=== PATIENT | female | born 1945 ===

== ENCOUNTER 2020-11-13 10:51 | Outpatient (REF) | payer MEDICARE, SELFPAY ==
--- NOTE | ~2020-11-13 | XR_ITS ---
EXAMINATION: KNEE X-RAY CLINICAL INFORMATION: Right knee pain COMPARISON: Previous right knee x-ray June 2016 and left knee x-ray April 2016 TECHNIQUE: Standing AP view of both knees and lateral and sunrise view of the right knee FINDINGS: Right: Bone alignment is normal. No fracture or dislocation is seen. There is tricompartment arthritis. There is a small osteophyte at the quadriceps tendon insertion to the patella. There is no joint effusion. AP view of the left knee demonstrates arthritis at the femoral tibial joints. XR/XR knee standing BI IMPRESSION: Bilateral arthritis increased from 2016 exams.
--- NOTE | ~2020-11-13 | XR_ITS ---
EXAMINATION: KNEE X-RAY CLINICAL INFORMATION: Right knee pain COMPARISON: Previous right knee x-ray June 2016 and left knee x-ray April 2016 TECHNIQUE: Standing AP view of both knees and lateral and sunrise view of the right knee FINDINGS: Right: Bone alignment is normal. No fracture or dislocation is seen. There is tricompartment arthritis. There is a small osteophyte at the quadriceps tendon insertion to the patella. There is no joint effusion. AP view of the left knee demonstrates arthritis at the femoral tibial joints. XR/XR knee RT 2V IMPRESSION: Bilateral arthritis increased from 2016 exams.
== END 2020-11-13 10:52 | disposition home or self-care (01) ==
LOC: HO.HOSX 10:51
PROVIDERS: Visit Provider Orthopaedic Surgery
DX: Z13.89 Encounter for screening for other disorder (principal)

== ENCOUNTER → 2020-11-15 10:32 | Outpatient (BNVA) | payer MEDICARE, SELFPAY | PROVIDERS: PCP Family Medicine; Visit Provider Orthopaedic Surgery | DX: M17.11 Unilateral primary osteoarthritis, right knee (principal) | CPT/HCPCS: 73560; 73565; 99202 ==

== ENCOUNTER 2021-01-17 09:54 | Outpatient (REF) | payer MEDICARE, SELFPAY ==
--- NOTE | ~2021-01-17 | US_ITS ---
EXAMINATION: RIGHT and LEFT LOWER EXTREMITY VENOUS ULTRASOUND (Reflux Exam) CLINICAL INDICATION: Venous insufficiency COMPARISON: None. TECHNIQUE: Color flow triplex imaging and compression Doppler was performed to evaluate both the deep and the superficial systems bilaterally. To evaluate the superficial system, the examination was performed in the upright position. Color-flow Doppler ultrasound and compression ultrasound were utilized. In addition, maneuvers were utilized to demonstrate reflux. FINDINGS: 1. DEEP VENOUS ULTRASOUND OF THE RIGHT LOWER EXTREMITY: Respiratory variation, normal compression and augmented flow are noted in the right common femoral vein as well as the right popliteal vein and there is no evidence of deep venous thrombosis at these locations. There is no evidence of reflux in the deep system in either the common femoral vein or the popliteal vein. There is no evidence of a López's cyst. 2. SUPERFICIAL ULTRASOUND WITH DOPPLER OF RIGHT LOWER EXTREMITY: The right great saphenous vein at the saphenofemoral junction measures 11 mm, at the mid thigh 5 mm, [id number] 5 mm, [id number] 5 mm, at mid calf 3 mm and at the ankle measures 2 mm. There is diffuse right greater saphenous vein reflux measuring maximum 2.6 cm below the knee. There is an accessory right medial greater saphenous vein that measures 4 mm and does not demonstrate reflux. The right small saphenous vein measures 2-4 mm and shows no reflux. There is a senior field service engineer in the mid calf that measures 2 mm and demonstrates 2.4 seconds reflux. There is a senior field service engineer in the mid thigh that measures 2 mm and does not demonstrate reflux. There is a varicosity in the proximal thigh arising from the greater saphenous vein that measures 3 mm and does not demonstrate reflux. There is a varicosity in the proximal calf that measures 4 mm and demonstrates 1.9 seconds reflux. 3. DEEP VENOUS ULTRASOUND OF THE LEFT LOWER EXTREMITY: Respiratory variation, normal compression and augmented flow are noted in the left common femoral vein as well as the left popliteal vein and there is no evidence of deep venous thrombosis at these locations. There is no evidence of reflux in the deep system in either the common femoral vein or the popliteal vein. . There is no evidence of a López's cyst. 4. SUPERFICIAL ULTRASOUND WITH DOPPLER OF LEFT LOWER EXTREMITY: Left great saphenous vein at the saphenofemoral junction measures 18 mm, at the mid thigh 5 mm, [id number] 3 mm, [id number] 2 mm, at mid calf 2 mm and at the ankle measures 2 mm. There is reflux in the right greater saphenous vein measuring 1.8 seconds in the proximal thigh, 2.6 seconds in the mid thigh and 2.8 seconds in the mid calf. There is a lateral accessory greater saphenous vein that measures 3 mm and does not demonstrate reflux. The left small saphenous vein is not visualized. There is a senior field service engineer in the left mid calf that measures 2 mm and does not demonstrate reflux. There is a varicosity in the left mid thigh that measures 6 mm and demonstrates 1.7 second reflux. US/US venous duplex LE BI IMPRESSION: 1. No evidence of reflux or thrombus in the common femoral veins or popliteal veins bilaterally. 2. Bilateral greater saphenous vein reflux, right greater than left. Kellee
== END 2021-01-17 09:55 | disposition home or self-care (01) ==
LOC: HO.US 09:54
PROVIDERS: Visit Provider Family Medicine
DX: I87.2 Venous insufficiency (chronic) (peripheral) (principal); M79.89 Other specified soft tissue disorders; R22.42 Localized swelling, mass and lump, left lower limb
CPT/HCPCS: 93970

== ENCOUNTER 2021-01-17 12:05 | Emergency (ER) | payer MEDICARE, SELFPAY ==
[2021-01-17 12:27] VITALS: BP 169/83; PULSE 78; RESP 18; TEMP 36.9; O2SAT 98; BMI 32.1
[2021-01-17 13:28] LABS: Glucose, Whole Blood 101 mg/dL (60-115)
--- NOTE | 2021-01-17 14:57 | ED.SYNCOPE ---
HPI - Syncope General Chief Complaint: Syncope Stated Complaint: knee pain - fall Time Seen by Provider: 01/17/21 14:57 Source: patient Mode of arrival: ambulatory Limitations: no limitations History of Present Illness HPI narrative: patient had an hour and a half ultrasound after having her study she got dressed and then passed out complaint: loss of consciousness Onset (ago): hour(s) -: second(s) Prodromal symptoms: none Witnessed: Yes - by Bystander Context: getting out of bed Injuries sustained associated with event: none Current symptoms: none Related Data Home Medications Medication Instructions Recorded Confirmed aspirin 81 mg tablet,delayed 81 mg PO DAILY 11/15/20 release atorvastatin 10 mg tablet 10 mg PO DAILY 11/15/20 fluticasone propionate 50 1 inh INHALATION BID 11/15/20 mcg/actuation blister powder for inhalation lisinopril 2.5 mg tablet 2.5 mg PO DAILY 11/15/20 loratadine 10 mg capsule 10 mg PO DAILY 11/15/20 Allergies Allergy/AdvReac Type Severity Reaction Status Date / Time No Known Allergies Allergy Verified 11/15/20 10:49 [No Known Allergies*] Review of Systems Constitutional: Constitutional: Reports no additional constitutional complaints Eyes: Eyes: Reports no additional eye complaints ENT: Denies dizziness Cardiovascular: Cardiovascular: Reports no additional cardiovascular complaints Respiratory: Respiratory: Reports as per HPI Gastrointestinal: Gastrointestinal: Reports no additional gastrointestinal complaints Genitourinary: Genitourinary: Reports no additional female genitourinary complaints Musculoskeletal: Musculoskeletal: Reports no additional musculoskeletal complaints Integumentary/Breasts: Skin/Breast: Denies rash Neurologic: Reports system reviewed and no additional complaints, except as documented, Denies dizziness and Denies Sensory deficit (Neuro) Psychiatric: Psychiatric: Denies anxiety PMFSH Past Medical History Medical History ACL injury tear Active asthma Arthritis Dyslipidemia High blood pressure High cholesterol Surgical History Hx of breast lump removal Social History Social History Alcohol intake: never Patient Tobacco Use Status: Never used Tobacco Use of substances other than those prescribed or required for medical reasons: No Advance Directives: Yes Advance Directives Information Provided: Yes Advance Directives on File: No Current occupational status: retired Physical Exam Vital Signs: Vital Signs: Last Vital Signs Temp 98.5 F 01/17/21 12:27 Pulse 76 01/17/21 16:06 Resp 18 01/17/21 12:27 BP 132/72 01/17/21 16:06 Pulse Ox 99 01/17/21 15:58 Body Mass Index 32.1 Const: General: healthy appearing Nutritional Appearance: average body habitus Orientation/consciousness: oriented to person and patient oriented x3 Limitations: no limitations HENMT: Head: Yes normal to inspection Ears: external ears normal General nose exam: Normal external nose present Mouth: Normal oral and palatal mucosa present and oropharynx normal Throat: Yes posterior oropharynx normal Eyes: General: appearance normal, both eyes and all related structures Neck: Other: supple Neck: Yes normal visual inspection Chest: Chest palpation & inspection: normal inspection of the chest Resp: Auscultation: clear to auscultation bilaterally Cardio: Jugular venous distension: no JVD Rate: regular rate Rhythm: regular rhythm Heart sounds: S1 normal heart sound present and S2 normal heart sound present GI: Inspection: Yes normal to inspection Palpation (GI): Soft to palpation, nontender and No hepatosplenomegaly present Auscultation: normal bowel sounds : General: Yes no CVA tenderness Back/Spine/Pelvis: Back: no CVA tenderness Skin: General skin exam: no rashes or lesions noted Neuro: General: oriented to person and patient oriented x3 Cranial nerves: Yes CN's II-XII intact bilaterally Motor exam (neuro): 5/5 motor strength present throughout Sensory Exam: No Sensory deficit (Neuro) Extrem: General: Yes normal to inspection Psych: Appearance: grossly normal Course Course Course Narrative: With negative doppler, normal EKG and labs and troponin, likely vasovagal syncope will dc home MDM - Syncope Lab Data Result diagrams: 01/17/21 15:54 01/17/21 15:54 Labs: Lab Results 01/17/21 01/17/21 01/17/21 Range/Units 12:20 15:54 15:54 WBC 6.5 (4.8-10.8) X10*3/uL RBC 4.17 L (4.20-5.50) X10*6/uL Hgb 12.5 (12.0-16.0) g/dl Hct 39.0 (37-47) % MCV 93.5 (80-98) fL MCH 30.0 (27.0-33.0) pg MCHC 32.1 (31.0-35.0) g/dl RDW 12.9 (11.0-16.0) % Plt Count 258 (160-400) X10*3/uL MPV 9.9 (9.4-12.3) fL Immature Gran % (Auto) 0.5 H (0.0-0.4) % Neut % (Auto) 55.1 (45-73) % Lymph % (Auto) 30.8 (20-40) % Glascock % (Auto) 9.3 (2-11) % Eos % (Auto) 3.8 (0-4) % Baso % (Auto) 0.5 (0-2) % Lymph # (Auto) 2.0 (1.2-4.9) X10*3/uL Glascock # (Auto) 0.6 (0.1-1.2) X10*3/uL Eos # (Auto) 0.3 (0.0-0.4) X10*3/uL Baso # (Auto) 0.0 (0.0-0.2) X10*3/uL Abs Immat Gran (auto) 0.03 (0.00-0.03) X10*3/uL Absolute Neuts (auto) 3.6 (2.0-8.3) X10*3/uL Absolute Nucleated RBC 0.000 (0.0-0.012) X10*3/uL Nucleated RBC % (auto) 0.0 (0.0-0.2) /100WBC Sodium 139 (135-145) mmol/L Potassium 4.6 (3.3-5.1) mmol/L Chloride 104 (96-108) mmol/L Carbon Dioxide 26 (22-29) mmol/L Anion Gap 14 (12-20) BUN 10 (9-16) mg/dL Creatinine 0.71 (0.5-1.4) mg/dL Estim Creat Clear Calc 66.3 Estimated GFR > 60 POC Glucose 101 (60-115) mg/dL Random Glucose 101 (60-115) mg/dL Calcium 9.5 (8.4-10.2) mg/dL Troponin I High Sens (<3.5-17.0) ng/L 01/17/21 Range/Units 15:54 WBC (4.8-10.8) X10*3/uL RBC (4.20-5.50) X10*6/uL Hgb (12.0-16.0) g/dl Hct (37-47) % MCV (80-98) fL MCH (27.0-33.0) pg MCHC (31.0-35.0) g/dl RDW (11.0-16.0) % Plt Count (160-400) X10*3/uL MPV (9.4-12.3) fL Immature Gran % (Auto) (0.0-0.4) % Neut % (Auto) (45-73) % Lymph % (Auto) (20-40) % Glascock % (Auto) (2-11) % Eos % (Auto) (0-4) % Baso % (Auto) (0-2) % Lymph # (Auto) (1.2-4.9) X10*3/uL Glascock # (Auto) (0.1-1.2) X10*3/uL Eos # (Auto) (0.0-0.4) X10*3/uL Baso # (Auto) (0.0-0.2) X10*3/uL Abs Immat Gran (auto) (0.00-0.03) X10*3/uL Absolute Neuts (auto) (2.0-8.3) X10*3/uL Absolute Nucleated RBC (0.0-0.012) X10*3/uL Nucleated RBC % (auto) (0.0-0.2) /100WBC Sodium (135-145) mmol/L Potassium (3.3-5.1) mmol/L Chloride (96-108) mmol/L Carbon Dioxide (22-29) mmol/L Anion Gap (12-20) BUN (9-16) mg/dL Creatinine (0.5-1.4) mg/dL Estim Creat Clear Calc Estimated GFR POC Glucose (60-115) mg/dL Random Glucose (60-115) mg/dL Calcium (8.4-10.2) mg/dL Troponin I High Sens < 3.5 (<3.5-17.0) ng/L Imaging Data doppler: Radiologist's impression: IMPRESSION: 1. No evidence of reflux or thrombus in the common femoral veins or popliteal veins bilaterally. 2. Bilateral greater saphenous vein reflux, right greater than left. ECG Data Attestation: I personally reviewed and interpreted this ECG as follows: Interpretation: normal sinus rate 65, no st or twave changes Discharge Plan Discharge Clinical Impression: Vasovagal syncope Patient Disposition: Home, Self-Care Instructions: Syncope (ED) Referrals: Monserrat Steve MD [Primary Care Provider] - 2 days
--- NOTE | 2021-01-17 15:15 | ECG_ITS ---
Test Reason : SYNCOPE Blood Pressure : / mmHG Vent. Rate : 065 BPM Atrial Rate : 065 BPM P-R Int : 138 ms QRS Dur : 092 ms QT Int : 398 ms P-R-T Axes : 058 -31 038 degrees QTc Int : 413 ms Normal sinus rhythm Left axis deviation Incomplete right bundle branch block Abnormal ECG When compared with ECG of 28-NOV-2016 14:13, No significant change was found Referred By: Gabriele Alegria Electronically Signed By:TYESHA CAMARGO
[2021-01-17 15:58] VITALS: O2SAT 99
[2021-01-17 15:58] LABS: MANUAL DIFF FLAG NO
[2021-01-17 16:00] LABS: Basophils Percent Auto 0.5 % (0-2); Eosinophils Absolute Auto 0.3 X10*3/uL (0.0-0.4); Eosinophils Percent Auto 3.8 % (0-4); Hemoglobin 12.5 g/dl (12.0-16.0); Imm Gran Abs Auto 0.03 X10*3/uL (0.00-0.03); Imm Gran Pct Auto 0.5 % (0.0-0.4); Lymphocytes Percent Auto 30.8 % (20-40); Mean Corpuscular HGB Conc 32.1 g/dl (31.0-35.0); Mean Corpuscular Volume 93.5 fL (80-98); Mean Platelet Volume 9.9 fL (9.4-12.3); Monocytes Absolute Auto 0.6 X10*3/uL (0.1-1.2); Monocytes Percent Auto 9.3 % (2-11); Neutrophils Absolute Auto 3.6 X10*3/uL (2.0-8.3); Neutrophils Percent Auto 55.1 % (45-73); Platelet Count 258 X10*3/uL (160-400); Red Blood Count 4.17 X10*6/uL (4.20-5.50); Red Cell Distribution Width 12.9 % (11.0-16.0); White Blood Count 6.5 X10*3/uL (4.8-10.8)
[2021-01-17 16:04] VITALS: BP 127/75; PULSE 64
[2021-01-17 16:05] VITALS: BP 139/78; PULSE 70
[2021-01-17 16:06] VITALS: BP 132/72; PULSE 76
--- NOTE | 2021-01-17 16:14 | PC.NURSE ---
Labs david and sent to the labs and orthos performed by tech. Pt is aware that she is awaiting results of lab work.
[2021-01-17 16:23] LABS: Anion Gap 14 (12-20); Blood Urea Nitrogen 10 mg/dL (9-16); Calcium 9.5 mg/dL (8.4-10.2); Carbon Dioxide 26 mmol/L (22-29); Chloride 104 mmol/L (96-108); Creatinine Clr Calc Pharmacy 66.3; Estimated Glomerular Filt Rate > 60; Glucose Random 101 mg/dL (60-115); Potassium 4.6 mmol/L (3.3-5.1); Sodium 139 mmol/L (135-145)
[2021-01-17 16:27] LABS: Troponin-I High Sensitivity < 3.5 ng/L (<3.5-17.0)
== END 2021-01-17 16:54 | disposition home or self-care (01) ==
PROVIDERS: Emergency Provider Emergency Medicine; PCP Family Medicine
DX: R55 Syncope and collapse (principal); Z79.899 Other long term (current) drug therapy
CPT/HCPCS: 36415; 80048; 82947; 84484; 85025; 93005; 99285

== ENCOUNTER 2021-01-26 10:43 | Outpatient (REF) | payer MEDICARE, SELFPAY ==
--- NOTE | ~2021-01-26 | XR_ITS ---
EXAMINATION: XR knee RT 4V CLINICAL INFORMATION: Reason for Exam PAIN IN RIGHT KNEE, HX OF FALLING COMPARISON: October 2020 TECHNIQUE: Frontal lateral obliques. FINDINGS: BONES: No fracture or dislocation is present. JOINTS: Narrowing of joint spaces and developed osteophytes from the edges of articular surfaces suggest degenerative osteoarthritis. There is a small knee joint effusion. SOFT TISSUE: Normal XR/XR knee RT 4V IMPRESSION: 1. 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 2. Small knee joint effusion.
== END 2021-01-26 10:44 | disposition home or self-care (01) ==
LOC: HO.XRAY 10:43
PROVIDERS: Absent Provider Family Medicine; PCP Family Medicine; Visit Provider Family Medicine
DX: M25.561 Pain in right knee (principal); Z91.81 History of falling
CPT/HCPCS: 73564

== ENCOUNTER 2021-09-05 08:30 | Outpatient (REF) | payer MEDICARE, SELFPAY ==
--- NOTE | 2021-09-05 08:39 | EMG_ITS ---
This is a 76-year-old woman with bilateral lower extremity pain, numbness, and tingling with the right being worse than the left. PHYSICAL EXAMINATION: On examination, she is alert and oriented with normal intellectual functions. Reflexes symmetrical. Plantar responses flexor. No sensory deficits. IMPRESSION: Rule out peripheral neuropathy. 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 Normal sensory velocities. Normal EMG of the right L4-S1 innervated muscles. MD JULIA Manzanares/ANDREI / [id number]
== END 2021-09-05 08:31 | disposition home or self-care (01) ==
LOC: HO.NEURO 08:30
PROVIDERS: PCP Family Medicine; Visit Provider Family Medicine
DX: R20.0 Anesthesia of skin (principal)
CPT/HCPCS: 95885; 95912

== ENCOUNTER 2022-06-08 19:15 | Emergency (ER) | payer MEDICARE, SELFPAY ==
--- NOTE | ~2022-06-08 | XR_ITS ---
EXAMINATION: XR CHEST CLINICAL INFORMATION: Chest pain COMPARISON: 05.26.2017 TECHNIQUE: Frontal view of the chest was obtained. FINDINGS: No significant abnormality is noted involving the heart, lungs, mediastinum, bony thorax or soft tissues. XR/XR chest 1V IMPRESSION: Unremarkable examination.
--- NOTE | 2022-06-08 19:29 | ECG_ITS ---
Test Reason : CHEST PAIN Blood Pressure : / mmHG Vent. Rate : 074 BPM Atrial Rate : 074 BPM P-R Int : 150 ms QRS Dur : 094 ms QT Int : 382 ms P-R-T Axes : 061 -34 049 degrees QTc Int : 424 ms Normal sinus rhythm Left anterior fascicular block Incomplete right bundle branch block Minimal voltage criteria for LVH, may be normal variant ( R in aVL ) Abnormal ECG When compared with ECG of 17-JAN-2021 13:55, No significant change was found Referred By: Angela Arrieta Electronically Signed By:SUDHAKAR ROSE MD
[2022-06-08 19:33] VITALS: BP 127/69; BP 140/80; PULSE 70; PULSE 79; RESP 17; TEMP 36.8; O2SAT 98; BMI 28.1
--- NOTE | 2022-06-08 19:35 | ED.GENADULT ---
HPI - General Adult General Chief complaint: Chest Pain Stated complaint: CP Time Seen by Provider: 06/08/22 19:28 Source: patient Mode of arrival: ambulatory Limitations: no limitations History of Present Illness HPI narrative: This is a 77-year-old female history of hypertension, hyperlipidemia who presents to the emergency department with complaints of left scapula/upper left back pain that radiates into left arm and left anterior chest wall x2 days. Patient tells me has been progressively worsening over the past few days. She tells me that the discomfort is intermittent in nature, feels like a stabbing sensation, rates it an 8/10. She reports that this has never happened to her before. She tells me that she was just sitting around when this started. She denies any associated nausea, vomiting, headache, dizziness, vision changes, shortness of breath, fevers, chills, numbness, tingling. Tells me she has no significant cardiac history, no significant family cardiac history. Related Data Home Medications Medication Instructions Recorded Confirmed aspirin 81 mg tablet,delayed 81 mg PO DAILY 11/15/20 release atorvastatin 10 mg tablet (Lipitor) 10 mg PO DAILY 11/15/20 fluticasone propionate 50 1 inh inhalation BID 11/15/20 mcg/actuation blister powder for inhalation (Flovent Diskus) lisinopril 2.5 mg tablet 2.5 mg PO DAILY 11/15/20 loratadine 10 mg capsule 10 mg PO DAILY 11/15/20 Allergies Allergy/AdvReac Type Severity Reaction Status Date / Time No Known Allergies Allergy Verified 11/15/20 10:49 [No Known Allergies*] Review of Systems Review of Systems: Constitutional : No Weight loss, No Fever, No Chills, No Fatigue, No Malaise ENT/Mouth : No sore throat, No Rhinorrhea Eyes: No Eye Pain, No Swelling, No Redness Cardiovascular : No Chest Pain, No SOB, No Dyspnea on Exertion, No Orthopnea, No Edema, No Palpitations Respiratory : No Cough, No Sputum, No Wheezing Gastrointestinal : No Nausea, No Vomiting, No Diarrhea, No Constipation, No abdominal Pain, No Hematochezia, No Melena Genitourinary : No Dysuria, No Urinary Frequency, No Hematuria, Musculoskeletal : No joint pain, No Myalgias, No Joint Swelling, + pain to left upper back, neck and shoulder Skin : No Skin Lesions, No rash Neuro : No Weakness, No Numbness, No Dizziness, No Headache Psych : No Anxiety/Panic, No Depression All other systems reviewed and are negative Yes all other systems are reviewed and are negative [facility] Past Medical History Attestation statement: The following information was validated with the patient. Source: old records reviewed and nursing notes reviewed Medical History ACL injury tear Active asthma Arthritis Dyslipidemia High blood pressure High cholesterol Surgical History Hx of breast lump removal Social History Social History Alcohol intake: never Patient Tobacco Use Status: Never used Tobacco Advance Directives: No Advance Directives Information Provided: No Current occupational status: retired Physical Exam ED Vital Signs: Vital Signs - 24 hr 06/08/22 19:33 06/08/22 19:38 06/08/22 22:07 Temperature 98.2 F 98.2 F Pulse Rate 79 77 74 Respiratory Rate 17 17 17 Blood Pressure 127/69 127/69 100/58 L Pulse Oximetry 98 98 97 Oxygen Delivery Method Room Air Room Air Room Air BMI result Body Mass Index 28.1 vss Appearance: Alert.? Oriented X3.? No acute distress.? Head: Normocephalic, atraumatic, no step-offs or deformities Eyes: Pupils equal, round and reactive to light.? ENT: Pharynx normal.? Neck: Normal inspection.? Neck supple.? CVS: Normal heart rate and rhythm.? Pulses normal.?+ left anterior chest wall pain Respiratory: No respiratory distress.? Breath sounds normal.? Abdomen: Soft and nontender.? Skin: Skin warm and dry.? Normal skin color.? Normal skin turgor.? Extremities: No lower extremity edema.? No calf ttp. Global weakness. 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 No motor deficit.? No sensory deficit. CN 2-12 intact. Negative pronator drift. Course Reevaluation(s) Reevaluation #1: CBC appears to be around patient's baseline, chemistry with no acute electrolyte abnormalities requiring intervention, troponin negative x2, EKG nonischemic, unlikely ACS. BNP within normal limits, no signs of fluid overload on exam, unlikely CHF. COVID negative. Chest x-ray unremarkable. Patient reports that she is feeling better. At this time patient will be discharged home I suspect that this is likely noncardiac chest pain or musculoskeletal pain. At this time comfortable discharge with prompt PCP follow-up. Advised to return with new or worsening symptoms, give her follow-up with cardiology in case pain persists. At this time patient will be discharged home. To note, at time of discharge patient reports significant improvement, tells me she is feeling much better than she was when she 1st arrived. Comfortable discharge home Time: 23:14 Medical Decision Making [facility] Narrative Medical decision making narrative: 1927 77-year-old female presents with left upper back/scapular pain that radiates into the left arm and left anterior chest wall x2 days. No associated shortness of breath. No past cardiac history. No significant family cardiac history. Patient takes aspirin daily. Physical examination with pain with palpation to left anterior chest wall, left scapular region, left cervical and thoracic paraspinous muscles. Regular rate and rhythm, lungs clear, abdomen soft nontender nondistended. Neuro nonfocal, cerebellar intact. Likely musculoskeletal in origin as pain is reproducible with palpation. I do not suspect PE on this patient. Will rule out ACS although unlikely. Other differentials include costochondritis. No signs of dissection, PE. Plan labs, imaging, troponin, EKG. Medical Records Medical records reviewed: Yes I reviewed the patient's medical records. Lab Data Lab results reviewed: Yes I reviewed the patient's lab results. Result diagrams: 06/08/22 19:50 06/08/22 20:31 Labs: Lab Results 06/08/22 06/08/22 06/08/22 Range/Units 19:50 19:50 19:50 WBC 5.4 (4.8-10.8) X10*3/uL RBC 3.87 L (4.20-5.50) X10*6/uL Hgb 11.6 L (12.0-16.0) g/dl Hct 35.3 L (37.0-47.0) % MCV 91.2 (80.0-98.0) fL MCH 30.0 (27.0-33.0) pg MCHC 32.9 (31.0-35.0) g/dl RDW 12.9 (11.0-16.0) % Plt Count 213 (160-400) X10*3/uL MPV 10.6 (9.4-12.3) fL Immature Gran % (Auto) 0.0 (0.0-0.4) % Neut % (Auto) 54.4 (45-73) % Lymph % (Auto) 31.0 (20-40) % [place] % (Auto) 9.3 (2-11) % Eos % (Auto) 4.7 H (0-4) % Baso % (Auto) 0.6 (0-2) % Lymph # (Auto) 1.7 (1.2-4.9) X10*3/uL [place] # (Auto) 0.5 (0.1-1.2) X10*3/uL Eos # (Auto) 0.3 (0.0-0.4) X10*3/uL Baso # (Auto) 0.0 (0.0-0.2) X10*3/uL Abs Immat Gran (auto) 0.00 (0.00-0.03) X10*3/uL Absolute Neuts (auto) 2.9 (2.0-8.3) x10*3/uL Absolute Nucleated RBC 0.000 (0.0-0.012) X10*3/uL Nucleated RBC % (auto) 0.0 (0.0-0.2) /100WBC Sodium (135-145) mmol/L Potassium (3.3-5.1) mmol/L Chloride (96-108) mmol/L Carbon Dioxide (22-29) mmol/L Anion Gap (12-20) BUN (9-16) mg/dL Creatinine (0.5-1.4) mg/dL Estim Creat Clear Calc Estimated GFR Random Glucose (60-115) mg/dL Calcium (8.4-10.2) mg/dL Magnesium (1.6-2.6) mg/dL Total Bilirubin (0.0-1.0) mg/dL AST (5-31) U/L ALT (0-31) U/L Alkaline Phosphatase (39-117) U/L Troponin I High Sens < 3.5 (<3.5-17.0) ng/L B-Natriuretic Peptide 33 (<100) pg/mL Total Protein (6.5-8.0) g/dL Albumin (3.5-5.0) g/dL COVID-19 (LIZ) (Negative) COVID-19 Clin Com 06/08/22 06/08/22 06/08/22 Range/Units 19:50 20:31 22:32 WBC (4.8-10.8) X10*3/uL RBC (4.20-5.50) X10*6/uL Hgb (12.0-16.0) g/dl Hct (37.0-47.0) % MCV (80.0-98.0) fL MCH (27.0-33.0) pg MCHC (31.0-35.0) g/dl RDW (11.0-16.0) % Plt Count (160-400) X10*3/uL MPV (9.4-12.3) fL Immature Gran % (Auto) (0.0-0.4) % Neut % (Auto) (45-73) % Lymph % (Auto) (20-40) % [place] % (Auto) (2-11) % Eos % (Auto) (0-4) % Baso % (Auto) (0-2) % Lymph # (Auto) (1.2-4.9) X10*3/uL [place] # (Auto) (0.1-1.2) X10*3/uL Eos # (Auto) (0.0-0.4) X10*3/uL Baso # (Auto) (0.0-0.2) X10*3/uL Abs Immat Gran (auto) (0.00-0.03) X10*3/uL Absolute Neuts (auto) (2.0-8.3) x10*3/uL Absolute Nucleated RBC (0.0-0.012) X10*3/uL Nucleated RBC % (auto) (0.0-0.2) /100WBC Sodium 141 (135-145) mmol/L Potassium 3.7 (3.3-5.1) mmol/L Chloride 103 (96-108) mmol/L Carbon Dioxide 29 (22-29) mmol/L Anion Gap 13 (12-20) BUN 12 (9-16) mg/dL Creatinine 0.74 (0.5-1.4) mg/dL Estim Creat Clear Calc 67.2 Estimated GFR > 60 Random Glucose 128 H (60-115) mg/dL Calcium 9.2 (8.4-10.2) mg/dL Magnesium 1.9 (1.6-2.6) mg/dL Total Bilirubin 0.3 (0.0-1.0) mg/dL AST 15 (5-31) U/L ALT 13 (0-31) U/L Alkaline Phosphatase 100 (39-117) U/L Troponin I High Sens < 3.5 (<3.5-17.0) ng/L B-Natriuretic Peptide (<100) pg/mL Total Protein 6.4 L (6.5-8.0) g/dL Albumin 3.8 (3.5-5.0) g/dL COVID-19 (LIZ) Negative (Negative) COVID-19 Clin Com See Note ECG Data Attestation: I personally reviewed and interpreted this ECG as follows: Prior ECG tracings: available for review Interpretation: Ventricular rate of 74, SC normal, QRS normal, QT/QTC normal. EKG with normal sinus rhythm, left axis deviation incomplete right bundle branch block, no significant changes when compared to EKG of December 2020. At this time no signs of acute ischemia. Critical Care Time Critical Care Time Critical Care Time: No Discharge Plan Discharge Clinical Impression: Left shoulder pain, Chest pain not due to acute coronary syndrome Patient Disposition: Home, Self-Care Instructions: Arm Pain (ED), Chest Pain (ED), Chest Wall Pain (ED), Noncardiac Chest Pain (ED) Additional Instructions: Take your medications as prescribed. If you were prescribed antibiotics today, it is important that you take your medication to their entirety, do not skip any doses, do not finish them early. Follow-up with your primary care provider this week. Return to the emergency department with new or worsening symptoms. Such as fevers, chills, chest pain, shortness of breath, nausea, vomiting, dizziness, headache, vision changes, lethargy In case of emergency call 911 If pain continues using follow-up with Cardiology, you may require Holter monitor. Your laboratory studies, imaging an EKG in the emergency department were reassuring. Referrals: Monserrat Steve MD [Primary Care Provider] - 2 days [facility] [Provider Group] - 2 weeks Stand Alone Forms: Work/School Release
--- NOTE | 2022-06-08 19:37 | PC.NURSE ---
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 Doing bedside EKG now
[2022-06-08 19:38] VITALS: BP 127/69; PULSE 77; RESP 17; TEMP 36.8; O2SAT 98
--- NOTE | 2022-06-08 19:39 | PC.NURSE ---
Awaiting campus coordinator at this time to complete triage questions
[2022-06-08 20:04] LABS: Basophils Percent Auto 0.6 % (0-2); Eosinophils Absolute Auto 0.3 X10*3/uL (0.0-0.4); Eosinophils Percent Auto 4.7 % (0-4); Hematocrit 35.3 % (37.0-47.0); Hemoglobin 11.6 g/dl (12.0-16.0); Lymphocytes Absolute Auto 1.7 X10*3/uL (1.2-4.9); MANUAL DIFF FLAG NO; Mean Corpuscular HGB Conc 32.9 g/dl (31.0-35.0); Mean Corpuscular Volume 91.2 fL (80.0-98.0); Mean Platelet Volume 10.6 fL (9.4-12.3); Monocytes Absolute Auto 0.5 X10*3/uL (0.1-1.2); Monocytes Percent Auto 9.3 % (2-11); Neutrophils Absolute Auto 2.9 x10*3/uL (2.0-8.3); Neutrophils Percent Auto 54.4 % (45-73); Platelet Count 213 X10*3/uL (160-400); Red Blood Count 3.87 X10*6/uL (4.20-5.50); Red Cell Distribution Width 12.9 % (11.0-16.0); White Blood Count 5.4 X10*3/uL (4.8-10.8)
[2022-06-08 20:33] LABS: B Type Natriuretic Peptide 33 pg/mL (<100)
[2022-06-08 20:34] LABS: Troponin-I High Sensitivity < 3.5 ng/L (<3.5-17.0)
[2022-06-08 20:50] LABS: Alanine Aminotransferase 13 U/L (0-31); Albumin Level 3.8 g/dL (3.5-5.0); Alkaline Phosphatase 100 U/L (39-117); Anion Gap 13 (12-20); Aspartate Amino Transferase 15 U/L (5-31); Bilirubin Total 0.3 mg/dL (0.0-1.0); Blood Urea Nitrogen 12 mg/dL (9-16); Calcium 9.2 mg/dL (8.4-10.2); Carbon Dioxide 29 mmol/L (22-29); Chloride 103 mmol/L (96-108); Creatinine Clr Calc Pharmacy 67.2; Estimated Glomerular Filt Rate > 60; Glucose Random 128 mg/dL (60-115); Magnesium 1.9 mg/dL (1.6-2.6); Potassium 3.7 mmol/L (3.3-5.1); Sodium 141 mmol/L (135-145); Total Protein 6.4 g/dL (6.5-8.0)
--- NOTE | 2022-06-08 21:32 | PC.NURSE ---
Attempt to call Bhanu x2. Bhanu answers phone, then call seems to get disconnected. This RN was able to relay to Bhanu that pt. is up for discharge and am ambulance is being booked
[2022-06-08 22:07] VITALS: BP 100/58; PULSE 74; RESP 17; O2SAT 97
[2022-06-08] MEDS: Morphine Sulfate 2 MG/ML CARTRIDGE IVPUSH (22:08)
--- NOTE | 2022-06-08 22:09 | PC.NURSE ---
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 Call zabala within reach. Vital signs re-checked and Morphine administerd. Pt. denies any complaints at this time and is resting comfortably watching TV
[2022-06-08 22:44] LABS: COVID-19 Test Negative (Negative); IDNOW Serial# 16C4AD1C
[2022-06-08 22:57] LABS: Troponin-I High Sensitivity < 3.5 ng/L (<3.5-17.0)
[2022-06-08 23:31] VITALS: BP 121/63; PULSE 67; RESP 17; O2SAT 98
--- NOTE | 2022-06-08 23:31 | PC.NURSE ---
Item Processing Clerk at bedside to review discharge instructions with pt. Pt.'s son is coming to pick her up. IV access removed
== END 2022-06-08 23:46 | disposition home or self-care (01) ==
PROVIDERS: Physician Assistant; Emergency Provider Student in an Organized Health Care Education/Training Program; PCP Family Medicine
DX: R07.89 Other chest pain (principal); M25.512 Pain in left shoulder; I10 Essential (primary) hypertension; E78.5 Hyperlipidemia, unspecified; Z79.82 Long term (current) use of aspirin; Z79.02 Long term (current) use of antithrombotics/antiplatelets; Z79.899 Other long term (current) drug therapy; Z20.822 Contact with and (suspected) exposure to COVID-19
CPT/HCPCS: 36415; 71045; 80053; 83735; 83880; 84484; 85025; 87635; 93005; 96374; 99284; J2270

== ENCOUNTER → 2022-07-10 13:43 | Outpatient (REF) | payer OTHER, SELFPAY ==
--- NOTE | 2022-07-10 13:47 | HM_ITS ---
Conclusion: 1. Patient was monitored for total period of 1 day and 23 hours 2. Baseline was normal sinus rhythm with average heart of 84 beats per minute 3. No significant bradycardia or pauses noted 4. Rare PACs noted 5. Patient reported to events that correlated with sinus rhythm MTDD
== END ==
LOC: HO.CARD 13:43
PROVIDERS: PCP Family Medicine; Visit Provider Family Medicine
DX: R07.89 Other chest pain (principal); R00.2 Palpitations
CPT/HCPCS: 93226; 93242

== ENCOUNTER → 2022-11-29 12:58 | Outpatient (BNVA) | payer OTHER, SELFPAY | PROVIDERS: PCP Family Medicine; Visit Provider Nurse Practitioner Family | DX: R07.89 Other chest pain (principal); R42 Dizziness and giddiness; E78.00 Pure hypercholesterolemia, unspecified; I10 Essential (primary) hypertension; Z79.899 Other long term (current) drug therapy | CPT/HCPCS: 93005; 99202 ==

== ENCOUNTER 2022-12-11 15:21 | Emergency (ER) | payer OTHER, SELFPAY ==
--- NOTE | ~2022-12-11 | XR_ITS ---
EXAMINATION: XR CHEST CLINICAL INFORMATION: Difficulty breathing COMPARISON: 06/08/2022 TECHNIQUE: 2 views of the chest were obtained. FINDINGS: The lungs are well expanded. There is no focal consolidation, edema, or effusion. No pneumothorax. The cardiomediastinal silhouette is within normal limits. No acute osseous abnormality. XR/XR chest 2V IMPRESSION: Clear lungs.
[2022-12-11 15:29] VITALS: BP 128/55; PULSE 77; RESP 18; TEMP 36.9; O2SAT 97; BMI 29.9
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
[2022-12-11 16:12] LABS: Carbon Monoxide POC 1.8 %
[2022-12-11] MEDS: predniSONE 20 MG TABLET 40 MG PO (16:49)
[2022-12-11 17:43] VITALS: PULSE 68; RESP 18; O2SAT 98
== END 2022-12-11 18:22 | disposition home or self-care (01) ==
PROVIDERS: Emergency Provider Internal Medicine
DX: J40 Bronchitis, not specified as acute or chronic (principal); R06.02 Shortness of breath; Z79.899 Other long term (current) drug therapy
CPT/HCPCS: 71046; 82375; 94640; 99283; 99284

== ENCOUNTER 2023-01-15 13:23 | Emergency (ER) | payer OTHER, SELFPAY ==
--- NOTE | ~2023-01-15 | US_ITS ---
EXAMINATION: US VENOUS ULTRASOUND WITH DOPPLER LOWER EXTREMITY, LEFT CLINICAL INFORMATION: Pitting edema COMPARISON: None available. TECHNIQUE: Ultrasound of the deep veins is performed from the hip to the calf with compression sonography and color and pulse Doppler assessment. Spectral analysis with color-flow imaging is performed. FINDINGS: There is normal venous compression and respiratory variation and augmented flow. The visualized common femoral vein, superficial femoral vein, profunda femoral vein, popliteal vein, and the trifurcation region shows no evidence of deep venous thrombosis. There is no significant popliteal fossa cyst If the patient's symptoms persist, followup ultrasound in 5 days 7 days might be of value to exclude proximal propagation from a non-visualized calf vein. US/US venous duplex LE LT IMPRESSION: No DVT demonstrated in the left lower extremity.
--- NOTE | ~2023-01-15 | XR_ITS ---
EXAMINATION: Left knee and left ankle. TECHNIQUE: Left knee 4 views and left ankle 3 views. CLINICAL INDICATIONS: Swelling, status post fall. FINDINGS: Left ankle: There is moderate lateral malleolar soft tissue swelling. The ankle mortise and subtalar joints are normal. No visible acute fracture or dislocation seen. There is a moderate size calcaneal heel and retrocalcaneal enthesophytes. Left knee: There is loss of tricompartment joint space with moderate periarticular spurring. No loose bodies. No bony erosive changes. There is superior patellar spurring. No abnormal joint effusion. XR/XR knee LT 3V IMPRESSION: 1. Moderate lateral malleolar soft tissue swelling. No visible acute fracture or dislocation seen. 2. Moderate size calcaneal heel and retrocalcaneal enthesophytes. 3. Degenerative arthritic changes left knee. No acute fracture, dislocation or joint effusion
--- NOTE | ~2023-01-15 | XR_ITS ---
EXAMINATION: Left knee and left ankle. TECHNIQUE: Left knee 4 views and left ankle 3 views. CLINICAL INDICATIONS: Swelling, status post fall. FINDINGS: Left ankle: There is moderate lateral malleolar soft tissue swelling. The ankle mortise and subtalar joints are normal. No visible acute fracture or dislocation seen. There is a moderate size calcaneal heel and retrocalcaneal enthesophytes. Left knee: There is loss of tricompartment joint space with moderate periarticular spurring. No loose bodies. No bony erosive changes. There is superior patellar spurring. No abnormal joint effusion. XR/XR ankle LT min 3V IMPRESSION: 1. Moderate lateral malleolar soft tissue swelling. No visible acute fracture or dislocation seen. 2. Moderate size calcaneal heel and retrocalcaneal enthesophytes. 3. Degenerative arthritic changes left knee. No acute fracture, dislocation or joint effusion
--- NOTE | 2023-01-15 13:31 | ED.LOWEXIN ---
HPI - Extremity Injury (Lower) General Chief Complaint: Fall Stated Complaint: L Leg Knee Pain S/P Fall 1 Wk Ago Time Seen by Provider: 01/15/23 15:12 Source: patient Mode of arrival: ambulatory Limitations: no limitations History of Present Illness HPI Narrative: 77 yo female with history of HTN, HLD, osteoarthritis presenting with left ankle and left knee pain and swelling after a mechanical fall on 01/05. She states she tripped over something in the street. She hit her head but did not lose consciousness. She is on aspirin but not anticoagulation. She has ongoing swelling and pain in the left lateral ankle and swelling of the left knee. She is ambulatory but has been using her walker instead of her cane. No lower leg or calf pain. she has bruising on her lower leg. MD complaint: knee injury and ankle injury Onset (ago): week(s) (1.5) Injury: Left: thigh and knee Type of Injury: blunt Place: street/outdoors Severity: moderate Relieving factors: immobilization and rest Exacerbating factors: weight bearing, movement and palpation Context: fall Associated symptoms: ambulatory Other symptoms: none Related Data Home Medications Medication Instructions Recorded Confirmed aspirin 81 mg tablet,delayed 81 mg PO DAILY 11/15/20 11/29/22 release atorvastatin 10 mg tablet (Lipitor) 10 mg PO DAILY 11/15/20 11/29/22 fluticasone propionate 50 1 inh inhalation BID 11/15/20 11/29/22 mcg/actuation blister powder for inhalation (Flovent Diskus) lisinopril 2.5 mg tablet 2.5 mg PO DAILY 11/15/20 11/29/22 loratadine 10 mg capsule 10 mg PO DAILY 11/15/20 11/29/22 anastrozole 1 mg tablet 1 mg PO DAILY 11/29/22 11/29/22 atorvastatin 80 mg tablet 80 mg PO DAILY 11/29/22 11/29/22 bisacodyl 5 mg tablet,delayed 5 mg PO DAILY 11/29/22 11/29/22 release calcium carbonate 600 mg-vitamin 1 tab PO 11/29/22 11/29/22 D3 10 mcg (400 unit) tablet cholecalciferol (vitamin D3) 25 25 mcg PO DAILY 11/29/22 11/29/22 mcg (1,000 unit) tablet ipratropium 0.5 mg-albuterol 3 mg ml inhalation 11/29/22 11/29/22 (2.5 mg base)/3 mL nebulization soln lisinopril 10 mg tablet 10 mg PO QAM 11/29/22 11/29/22 montelukast 10 mg tablet 10 mg PO QPM 11/29/22 11/29/22 omega-3 300 mg-dha 120 mg-epa 180 1 cap PO 11/29/22 11/29/22 mg-fish oil 1,000 mg capsule Previous Rx's Medication Instructions Recorded prednisone 20 mg tablet 40 mg PO DAILY #10 tabs 12/11/22 Allergies Allergy/AdvReac Type Severity Reaction Status Date / Time hydromorphone Allergy Severe Hives Verified 01/15/23 13:33 Review of Systems Review of Systems: Yes all other systems are reviewed and are negative [facility] Past Medical History Medical History ACL injury tear Active asthma Arthritis Dyslipidemia High blood pressure High cholesterol Surgical History Hx of breast lump removal Social History Social History Alcohol intake: never Patient Tobacco Use Status: Former Tobacco user Quit Date: Smoked from age 16 to age 32 Smoked in Last 30 Days: No Advance Directives: No Advance Directives Information Provided: Yes Current occupational status: retired Physical Exam Vital Signs: Vital Signs: Last Vital Signs Temp 98 F 01/15/23 13:33 Pulse 94 01/15/23 13:33 Resp 17 01/15/23 13:33 BP 119/76 01/15/23 13:33 Pulse Ox 99 01/15/23 13:33 BMI result Body Mass Index 32.1 Appearance: Alert. Oriented X3. No acute distress. HEENT: normal inspection CVS: Normal heart rate and rhythm. Pulses normal. Respiratory: No respiratory distress. Skin: Skin warm and dry. Normal skin color. Normal skin turgor. No rashes. Extremities: left lower leg with scattered ecchymosis anteriorly, superficial abrasions and moderate swelling of the left knee. left lateral ankle is swollen and tender. foot is warm and well perfused. nontender left calf. Neuro: Oriented X 3. No motor deficit. No sensory deficit. Course Course Course Narrative: RME: 77-year-old female with a past medical history of HTN, HLD, asthma/COPD, osteoarthritis presenting to the ED complaining of L knee & ankle pain s/p trip & fall on Mother's Day on metal in the road. admits to hitting head, denies LOC +L ankle healing abrasion with swelling & ttp, LLE pitting edema w/ecchymois and L ankle lateral mal swelling w/ttp. NV intact XRs and US venous duplex ordered Full HPI, ROS and PE to be performed by primary ED provider. Medical Decision Making Medical Decision Making MDM Narrative: 77 yo female Venezuelan speaking female presenting with left ankle and knee pain s/p mechanical fall on 01/05. she is ambulatory. xr's without acute fracture. U/S negative for DVT. pain most likely due to ankle sprain and knee contusion. juventino wraps applied for compression and support. encouraged continued tylenol and prn motrin, avoiding narcotics given. stable for d/c home. encouraged to f/u with PCP. Differential Diagnosis Differential Diagnoses: The differential diagnosis associated with the presentation includes ankle sprain, ankle fracture, knee effusion, ligamentous injury of the knee, less likely post traumatic DVT Independent Interpretation I performed an independent interpretation of an: Plain X-Ray and Ultrasound Interpretation: xray without fracture, lateral ankle swelling us without dvt Radiology Impression Discussion of test interpretation with radiology: I have reviewed the radiologist's reading. Radiologist Impression: EXAMINATION: Left knee and left ankle. TECHNIQUE: Left knee 4 views and left ankle 3 views. CLINICAL INDICATIONS: Swelling, status post fall. FINDINGS: Left ankle: There is moderate lateral malleolar soft tissue swelling. The ankle mortise and subtalar joints are normal. No visible acute fracture or dislocation seen. There is a moderate size calcaneal heel and retrocalcaneal enthesophytes. Left knee: There is loss of tricompartment joint space with moderate periarticular spurring. No loose bodies. No bony erosive changes. There is superior patellar spurring. No abnormal joint effusion. XR/XR ankle LT min 3V IMPRESSION: 1.? Moderate lateral malleolar soft tissue swelling. No visible acute fracture or dislocation seen. 2.? Moderate size calcaneal heel and retrocalcaneal enthesophytes. 3. Degenerative arthritic changes left knee. No acute fracture, dislocation or joint effusion EXAMINATION:? US VENOUS ULTRASOUND WITH DOPPLER LOWER EXTREMITY, LEFT CLINICAL INFORMATION:? Pitting edema COMPARISON:? None available. TECHNIQUE: Ultrasound of the deep veins is performed from the hip to the calf with compression sonography and color and pulse Doppler assessment. Spectral analysis with color-flow imaging is performed. FINDINGS: There is normal venous compression and respiratory variation and augmented flow. The visualized common femoral vein, superficial femoral vein, profunda femoral vein, popliteal vein, and the trifurcation region shows no evidence of deep venous thrombosis. ? There is no significant popliteal fossa cyst If the patient's symptoms persist, followup ultrasound in 5 days 7 days might be of value to exclude proximal propagation from a non-visualized calf vein. US/US venous duplex LE LT IMPRESSION: No DVT demonstrated in the left lower extremity. External Record Review External record reviewed: Outpatient record and Prior outpatient labs Prescription Management I considered prescription management with: Pain Medication Critical Care Time Critical Care Time Critical Care Time: No Discharge Plan Discharge Clinical Impression: Ankle sprain, Contusion of knee, left Patient Disposition: Home, Self-Care Instructions: Ankle Sprain (DC), Swollen Knee Joint (ED) Additional Instructions: Your x-rays today did not show any acute fractures. Your ultrasound did not show blood clots Rest your ankle and elevate your foot when possible. Recommend JUVENTINO wrap for support and compression. Use ice several times per day for the next 48 hours. You may bear weight as tolerated. Take Motrin and/or Tylenol as needed for pain. Follow up with your doctor as needed. Mary Kate radiograf?as de hoy no mostraron ninguna fractura aguda. Murray ultrasonido no mostr? co?gulos de joleen Descanse el tobillo y eleve el pie cuando sea posible. Recomiende la envoltura JUVENTINO para soporte y compresi?n. Use hielo varias veces al d?a olga lidia las pr?ximas 48 horas. Puede cargar peso seg?n lo tolere. Surrency Motrin y/o Tylenol seg?n sea necesario para el dolor. Jacob un seguimiento con murray m?dico seg?n sea necesario. Prescriptions: No Action prednisone 20 mg tablet 40 mg PO DAILY Qty: 10 0RF atorvastatin [Lipitor] 10 mg tablet 10 mg PO DAILY aspirin 81 mg tablet,delayed release (DR/EC) 81 mg PO DAILY Flovent Diskus 50 mcg/actuation blister with device 1 inh inhalation BID loratadine 10 mg capsule 10 mg PO DAILY lisinopril 2.5 mg tablet 2.5 mg PO DAILY cholecalciferol (vitamin D3) 25 mcg (1,000 unit) tablet 25 mcg PO DAILY anastrozole 1 mg tablet 1 mg PO DAILY omega 3-wme-zeg-fish oil 300 mg (120 mg- 180mg)-1,000 mg capsule 1 cap PO calcium carbonate-vitamin D3 600 mg-10 mcg (400 unit) tablet 1 tab PO montelukast 10 mg tablet 10 mg PO QPM lisinopril 10 mg tablet 10 mg PO QAM atorvastatin 80 mg tablet 80 mg PO DAILY bisacodyl 5 mg tablet,delayed release (DR/EC) 5 mg PO DAILY ipratropium-albuterol 0.5 mg-3 mg(2.5 mg base)/3 mL solution for nebulization inhalation Referrals: Monserrat Steve MD [Primary Care Provider] - Interventions: ED Discharge Assessment Last Done: 01/15/23 15:38 Discharge Date/Time: 01/15/23 15:39 Print Language: Venezuelan
[2023-01-15 13:33] VITALS: BP 119/76; PULSE 94; RESP 17; TEMP 36.6; O2SAT 99; BMI 32.1
--- NOTE | 2023-01-15 15:33 | MHC.EDTECH ---
with order from RN, kasia wrap was placed by this tech on complete left leg. patient tolerated well
== END 2023-01-15 15:39 | disposition home or self-care (01) ==
LOC: HO.ED 15:33
PROVIDERS: Emergency Provider Emergency Medicine Emergency Medical Services; PCP Family Medicine
DX: S93.402A Sprain of unspecified ligament of left ankle, initial encounter (principal); S80.02XA Contusion of left knee, initial encounter; W01.0XXA Fall on same level from slipping, tripping and stumbling without subsequent striking against object, initial encounter; M79.605 Pain in left leg; R60.0 Localized edema; I10 Essential (primary) hypertension; E78.5 Hyperlipidemia, unspecified; Z79.82 Long term (current) use of aspirin; Z79.02 Long term (current) use of antithrombotics/antiplatelets; Z79.899 Other long term (current) drug therapy; Y93.01 Activity, walking, marching and hiking; Y92.480 Sidewalk as the place of occurrence of the external cause; Y99.9 Unspecified external cause status
CPT/HCPCS: 73562; 73610; 93971; 99284

== ENCOUNTER 2023-10-21 10:40 | Outpatient (REF) | payer OTHER, SELFPAY ==
[2023-10-21 11:13] LABS: MANUAL DIFF FLAG NO
[2023-10-21 11:27] LABS: Basophils Percent Auto 0.7 % (0-2); Eosinophils Absolute Auto 0.3 X10*3/uL (0.0-0.4); Eosinophils Percent Auto 5.1 % (0-4); Hemoglobin 12.4 g/dl (12.0-16.0); Imm Gran Abs Auto 0.02 X10*3/uL (0.00-0.03); Imm Gran Pct Auto 0.3 % (0.0-0.4); Lymphocytes Absolute Auto 1.5 X10*3/uL (1.2-4.9); Lymphocytes Percent Auto 26.4 % (20-40); Mean Corpuscular HGB Conc 32.6 g/dl (31.0-35.0); Mean Corpuscular Hemoglobin 29.6 pg (27.0-33.0); Mean Corpuscular Volume 90.7 fL (80.0-98.0); Mean Platelet Volume 9.8 fL (9.4-12.3); Monocytes Absolute Auto 0.5 X10*3/uL (0.1-1.2); Monocytes Percent Auto 9.4 % (2-11); Neutrophils Absolute Auto 3.3 x10*3/uL (2.0-8.3); Neutrophils Percent Auto 58.1 % (45-73); Platelet Count 240 X10*3/uL (160-400); Red Blood Count 4.19 X10*6/uL (4.20-5.50); Red Cell Distribution Width 12.7 % (11.0-16.0); White Blood Count 5.7 X10*3/uL (4.8-10.8)
[2023-10-21 12:28] LABS: Microalbum/Creatinine Ratio Ur 9.4 ug/mg cr (<30)
[2023-10-21 13:56] LABS: Alanine Aminotransferase 13 U/L (0-31); Albumin Level 3.8 g/dL (3.5-5.0); Alkaline Phosphatase 111 U/L (39-117); Anion Gap 10 (12-20); Aspartate Amino Transferase 15 U/L (5-31); Bilirubin Total 0.4 mg/dL (0.0-1.0); Blood Urea Nitrogen 12 mg/dL (9-16); Calcium 9.5 mg/dL (8.4-10.2); Carbon Dioxide 29 mmol/L (22-29); Chloride 105 mmol/L (96-108); Cholesterol 156 mg/dL (<200); Estimated Glomerular Filt Rate > 60; Glucose Random 98 mg/dL (60-115); HDL Cholesterol 46 mg/dL (>40); LDL Cholesterol Calculated 95 mg/dL (<100); Sodium 140 mmol/L (135-145); TSH reflex Free T4 1.46 uIU/mL (0.32-4.0); Total Protein 6.9 g/dL (6.5-8.0); Triglycerides 75 mg/dL (<150)
[2023-10-21 15:28] LABS: Reflex LDLD? No
[2023-10-21 16:56] LABS: Folate 11.2 ng/mL (> or = 4.0)
[2023-10-22 16:00] LABS: Vitamin B12 443 pg/mL (200-900)
== END 2023-10-21 10:41 | disposition home or self-care (01) ==
LOC: HO.HHCL 10:40
PROVIDERS: Visit Provider Family Medicine
DX: E11.9 Type 2 diabetes mellitus without complications (principal); R63.4 Abnormal weight loss
CPT/HCPCS: 36415; 80053; 80061; 82043; 82570; 82607; 82746; 84443; 85025

== ENCOUNTER 2023-10-23 12:00 | Outpatient (REF) | payer OTHER, SELFPAY | END 2023-10-23 12:01 | disposition home or self-care (01) | LOC: HO.HHCLNP 12:00 | PROVIDERS: Visit Provider Family Medicine | DX: Z86.19 Personal history of other infectious and parasitic diseases (principal) | CPT/HCPCS: 87338 ==

== ENCOUNTER 2024-09-09 08:46 | Outpatient (REF) | payer OTHER, SELFPAY ==
[2024-09-09 11:46] LABS: Creatinine Urine 87.87 mg/dL; Microalbum/Creatinine Ratio Ur 6.8 ug/mg cr (<30)
[2024-09-09 12:45] LABS: Alanine Aminotransferase 13 U/L (0-31); Albumin Level 3.8 g/dL (3.5-5.0); Alkaline Phosphatase 100 U/L (39-117); Anion Gap 9 (12-20); Aspartate Amino Transferase 19 U/L (5-31); Bilirubin Total 0.2 mg/dL (0.0-1.0); Blood Urea Nitrogen 15 mg/dL (9-16); Carbon Dioxide 29 mmol/L (22-29); Chloride 107 mmol/L (96-108); Cholesterol 242 mg/dL (<200); Estimated Glomerular Filt Rate > 60; Glucose Random 107 mg/dL (60-115); HDL Cholesterol 45 mg/dL (>40); LDL Cholesterol Calculated 175 mg/dL (<100); Potassium 4.3 mmol/L (3.3-5.1); Sodium 141 mmol/L (135-145); Total Protein 7.4 g/dL (6.5-8.0); Triglycerides 112 mg/dL (<150)
[2024-09-09 12:51] LABS: Reflex LDLD? No
== END 2024-09-09 08:47 | disposition home or self-care (01) ==
LOC: HO.HHCL 08:46
PROVIDERS: Visit Provider Family Medicine
DX: E78.5 Hyperlipidemia, unspecified (principal); E11.9 Type 2 diabetes mellitus without complications; I10 Essential (primary) hypertension
CPT/HCPCS: 36415; 80053; 80061; 82043; 82570

== ENCOUNTER 2024-11-22 17:55 | Emergency (ER) | payer OTHER, SELFPAY ==
[2024-11-22 18:11] VITALS: BP 112/50; PULSE 94; RESP 16; TEMP 36.8; O2SAT 94
[2024-11-22 18:17] VITALS: BP 112/50; BP 127/71; PULSE 98; PULSE 99; RESP 20; TEMP 36.8; O2SAT 100; O2SAT 94; BMI 29.3
[2024-11-22 18:42] VITALS: BP 129/76; PULSE 80; RESP 16; O2SAT 95
[2024-11-22 19:16] LABS: MANUAL DIFF FLAG NO
[2024-11-22 19:17] LABS: Basophils Percent Auto 0.5 % (0-2); Eosinophils Absolute Auto 0.3 X10*3/uL (0.0-0.4); Eosinophils Percent Auto 4.8 % (0-4); Hematocrit 37.5 % (37.0-47.0); Hemoglobin 12.5 g/dl (12.0-16.0); Imm Gran Abs Auto 0.03 X10*3/uL (0.00-0.03); Imm Gran Pct Auto 0.5 % (0.0-0.4); Lymphocytes Percent Auto 16.9 % (20-40); Mean Corpuscular HGB Conc 33.3 g/dl (31.0-35.0); Mean Corpuscular Hemoglobin 30.2 pg (27.0-33.0); Mean Corpuscular Volume 90.6 fL (80.0-98.0); Mean Platelet Volume 9.7 fL (9.4-12.3); Monocytes Absolute Auto 0.3 X10*3/uL (0.1-1.2); Neutrophils Absolute Auto 4.2 x10*3/uL (2.0-8.3); Neutrophils Percent Auto 72.3 % (45-73); Platelet Count 207 X10*3/uL (160-400); Red Blood Count 4.14 X10*6/uL (4.20-5.50); Red Cell Distribution Width 13.2 % (11.0-16.0); White Blood Count 5.8 X10*3/uL (4.8-10.8)
--- OUTSIDE RECORDS SUMMARY | 2024-11-22 19:23 | XMS_ITS | Encounter Summary ---
Author Organization [employer] Address [address] [place] [address] Care Team Providers Care Supply Chain Engineer Name Role Phone Monserrat Steve MD Primary Care Provider [phone] Juan Pablo Adair PharmD Unavailable [phone] Reason for Visit * Reason Comments Med Refill Encounter Details Date Type Department Care Team ([facility] st Contact Info) Description 11/12/2023 Refill [facility] [address] [place], [place] [phone] Monserrat Steve MD [address] [place], [place] [phone] Vitamin D deficiency Social History Tobacco Use Types Packs/Day Years Used Date Smoking Tobacco: Former Cigarettes Passive Smoke Exposure: Past Smokeless Tobacco: Never Depression Answer Date Recorded Patient Health Questionnaire-9 Score 0 08/21/2022 Housing Stability Answer Date Recorded What is your housing situation today? I have jacqueline barrett 10/21/[address] you li ve. Do you have problems with any of the following? None of the above 10/21/2023 Food Insecurity Answer Date Recorded Within the past 12 months, y ou worried that your food would run out before you got money to buy more: Never True 10/21/2023 Within the past 12 months,th e food you bought just didn't last and you didn't have enough money to get more: Never True Transportation Answer Date Recorded In the past 12 months, has l ack of transportation kept you from medical appts, meetings, work or from getting things needed for daily living? No 10/21/2023 Utilities Answer Date Recorded In the past 12 months, has t he electric, gas, oil or water company threatened to shut off services in your home? No 10/21/2023 Depression Answer Date Recorded Patient Health Questionnaire-2 Score 1 09/16/2023 Comments Unknown Sex and Gender Information Value Date Recorded Sex Assigned at Female 06/24/2022 10:16 AM EDT Legal Sex Female 10:16 AM EDT Gender Identity Female 06/24/2022 10:16 AM EDT Sexual Orientation Straight 06/24/2022 10 :16 AM EDT documented as of this encounter Plan of Treatment Not on file documented as of this encounter Visit Diagnoses Diagnosis Vitamin D deficiency documented in this encounter Additional Health Concerns Assessment Noted Time PHQ-9 Depression Total Score: 0 08/21/20 22 11:00 AM EST documented as of this encounter Care Teams Supply Chain Engineer Relationship Specialty Start Date End Date Monserrat Steve MD [address] [place] [id number] PCP - General Family Medicine 08/25/18 Juan Pablo Adair, RowdyD [address] [place] [id number] Pharmacist Internal Medicine 06/14/24 11/07/24 documented as of this encounter
--- OUTSIDE RECORDS SUMMARY | 2024-11-22 19:23 | XMS_ITS | Encounter Summary ---
Author Organization [employer] [facility] Address [address] [facility] [address] [place] [address] Care Team Providers Care Rn Midwife Name Role Phone Monserrat Steve MD Primary Care Provider [phone] Juan Pablo Adair PharmD Unavailable [phone] Encounter Details Date Type Department Care Team (Late st Contact Info) Description 08/15/2022 Orders Only [facility] [address] [place], [place] [phone] Yu Meza LPN Social History Tobacco Use Types Packs/Day Years Used Date Smoking Tobacco: Never Assessed Comments Unknown Sex and Gender Information Value Date Recorded Sex Assigned at Female 06/24/2022 10:16 AM EDT Legal Sex Female 10:16 AM EDT Gender Identity Female 06/24/2022 10:16 AM EDT Sexual Orientation Straight 06/24/2022 10 :16 AM EDT documented as of this encounter Plan of Treatment Not on file documented as of this encounter Visit Diagnoses Not on filedocumented in this encounter Care Teams Rn Midwife Relationship Specialty Start Date End Date Monserrat Steve MD [address] [place], [place] [phone] PCP - General Family Medicine 08/25/18 Juan Pablo Adair, PharmD [address] [place], [place] [phone] Pharmacist Internal Medicine 06/14/24 11/07/24 documented as of this encounter
--- OUTSIDE RECORDS SUMMARY | 2024-11-22 19:23 | XMS_ITS | Encounter Summary ---
Author Organization [employer] Address [address] [place] [address] Care Team Providers Care Pig Sticker Name Role Phone Monserrat Steve MD Primary Care Provider [phone] Juan Pablo Adair PharmD Unavailable [phone] Reason for Visit * Reason Onset Date Comments new script 09/17/2022 Encounter Details Date Type Department Care Team ([facility] st Contact Info) Description 09/17/2022 Telephone [facility] [address] [place], [place] [phone] Monserrat Steve MD [address] [place], [place] [phone] new script Social History Tobacco Use Types Packs/Day Years Used Date Smoking Tobacco: Never Passive Smoke Exposure: Never Smokeless Tobacco: Never Depression Answer Date Recorded Patient Health Questionnaire-9 Score 0 08/21/2022 Depression Answer Date Recorded Patient Health Questionnaire-2 Score 0 08/21/2022 Comments Unknown Sex and Gender Information Value Date Recorded Sex Assigned at Female 06/24/2022 10:16 AM EDT Legal Sex Female 10:16 AM EDT Gender Identity Female 06/24/2022 10:16 AM EDT Sexual Orientation Straight 06/24/2022 10 :16 AM EDT COVID-19 Exposure Response Date Recorded In the last 10 days, have yo u been in contact with someone who was confirmed or suspected to have Coronavirus/COVID-19? No / Unsure 08/21/2022 10:18 AM EST documented as of this encounter Miscellaneous Notes * Telephone Encounter - Narda Dixon - 09/18/2022 1:31 PM EST Called pt she stated hasn't received her supply do to rx being but it doesn't till September. Called [facility] she did receive it JulySeptember 17 it's out for delivery for today. They will be sending us a recert form * Telephone Encounter - Benoit Goldstein - 09/17/2022 12:40 PM EST Tc from pt requesting new script for ensure milk ( strawberry ) ( vanilla ) pt states will like to be send to [facility] documented in this encounter Plan of Treatment Not on file documented as of this encounter Visit Diagnoses Not on filedocumented in this encounter Additional Health Concerns Assessment Noted Time PHQ-9 Depression Total Score: 0 08/21/20 11:00 AM EST documented as of this encounter Care Teams Pig Sticker Relationship Specialty Start Date End Date Monserrat Steve MD [address] [place] [address] PCP - General Family Medicine 08/25/18 Juan Pablo Adair, RowdyD [address] [place] [address] Pharmacist Internal Medicine 06/14/24 11/07/24 documented as of this encounter
--- OUTSIDE RECORDS SUMMARY | 2024-11-22 19:23 | XMS_ITS | Encounter Summary ---
Author Organization [employer] Address [address] [facility] [address] [place] [address] Care Team Providers Care Insecticide Maker Name Role Phone Monserrat Steve MD Primary Care Provider [phone] Juan Pablo Adair PharmD Unavailable [phone] Encounter Details Date Type Department Care Team (Late st Contact Info) Description 09/06/2022 Telephone [facility] [address] [place], [place] [phone] Monserrat Steve MD [address] [place], [place] [phone] Social History Tobacco Use Types Packs/Day Years [...] AM EST documented as of this encounter Plan of Treatment Not on file documented as of this encounter Visit Diagnoses Not on filedocumented in this encounter Additional Health Concerns Assessment Noted Time PHQ-9 Depression Total Score: 0 08/21/20 11:00 AM EST documented as of this encounter Care Teams Insecticide Maker Relationship Specialty Start Date End Date Monserrat Steve MD [address] [place] [address] PCP - General Family Medicine 08/25/18 Juan Pablo Adair, RowdyD [address] [place] [address] Pharmacist Internal Medicine 06/14/24 11/07/24 documented as of this encounter
--- OUTSIDE RECORDS SUMMARY | 2024-11-22 19:23 | XMS_ITS | Encounter Summary ---
Author Organization [employer] Address [address] [facility] [address] [place] [address] Care Team Providers Care Programming Manager Name Role Phone Monserrat Steve MD Primary Care Provider [phone] Juan Pablo Adair PharmD Unavailable [phone] Encounter Details Date Type Department Care Team (Late st Contact Info) Description 12/10/2022 Orders Only [facility] [address] [place], [place] [phone] Monserrat Steve MD [address] [place], [place] [phone] Helicobacter pylori gastritis (Primary Dx) Social History Tobacco Use Types Packs/Day Years [...] suspected to have Coronavirus/COVID-19? No / Unsure 12/05/2022 10:13 AM EDT documented as of this encounter Plan of Treatment Not on file documented as of this encounter Visit Diagnoses Diagnosis Helicobacter pylori gastritis- Primary documented in this encounter Additional Health Concerns Assessment Noted Time PHQ-9 Depression Total Score: 0 08/21/20 22 11:00 AM EST documented as of this encounter Care Teams Programming Manager Relationship Specialty Start Date End Date Monserrat Steve MD [address] [place] [address] PCP - General Family Medicine 08/25/18 Juan Pablo Adair, [place] [address] [place] [address] Pharmacist Internal Medicine 06/14/24 11/07/24 documented as of this encounter
--- OUTSIDE RECORDS SUMMARY | 2024-11-22 19:23 | XMS_ITS | Clinical Summary ---
Author Organization [facility] Address [address] [place] [address] Care Team Providers Care Splitter Machine Name Role Phone Unavailable Primary Care Provider Unavailabl e Social History Tobacco Use Types Packs/Day Years Used Date Smoking Tobacco: Never Assessed Comments Unknown Sex and Gender Information Value Date Recorded Sex Assigned at Not on file Legal Sex Female 9:04 AM EST Gender Identity Not on file Sexual Orientation Not on file Plan of Treatment Health Maintenance Due Date Last Done Comments DTaP,Tdap,and Td Vaccines (1 - Tdap) 1966 Pneumococcal Vaccine: 50+ Ye ars (1 of 1 - PCV) 1997 Zoster Vaccines (1 of 2) 1997 RSV Immunization Patients 60 + Years Old (1 - 1-dose 75+ series) 2022 COVID-19 Vaccine ( - 2023-2 5 season) 2024 Influenza Vaccine (#1) 2024 HIB Vaccines Aged Out No longer eligi ble based on patient's age to complete this topic HPV Vaccines Aged Out No longer eligi ble based on patient's age to complete this topic Hepatitis A Vaccines Aged Out No long er eligible based on patient's age to complete this topic Hepatitis B Vaccines Aged Out No long er eligible based on patient's age to complete this topic IPV Vaccines Aged Out No longer eligi ble based on patient's age to complete this topic MMR Vaccines Aged Out No longer eligi ble based on patient's age to complete this topic Meningococcal ACWY Vaccine Aged Out N o longer eligible based on patient's age to complete this topic Meningococcal B Vacine Aged Out No lo nger eligible based on patient's age to complete this topic RSV Immunization Patients Un obie 20 months Aged Out No longer eligible b ased on patient's age to complete this topic Varicella Vaccines Aged Out No longer eligible based on patient's age to complete this topic
--- OUTSIDE RECORDS SUMMARY | 2024-11-22 19:23 | XMS_ITS | Encounter Summary ---
Author Organization [employer] Address [address] [facility] [address] [place] [address] Care Team Providers Care Drier And Grinder Tender Name Role Phone Monserrat Steve MD Primary Care Provider [phone] Juan Pablo Adair PharmD Unavailable [phone] Encounter Details Date Type Department Care Team (Late st Contact Info) Description 01/22/2023 Abstract [facility] [address] [place], [place] [phone] Monserrat Steve MD [address] [place], [place] [phone] Social History Tobacco Use Types Packs/Day Years [...] documented as of this encounter Care Teams Drier And Grinder Tender Relationship Specialty Start Date End Date Monserrat Steve MD [address] [place], [place] [phone] PCP - General Family Medicine 08/25/18 Juan Pablo Adair, PharmD [address] [place] [phone] Pharmacist Internal Medicine 06/14/24 11/07/24 documented as of this encounter
--- OUTSIDE RECORDS SUMMARY | 2024-11-22 19:23 | XMS_ITS | Encounter Summary ---
Author Organization [employer] Address [address] [facility] 7[address] [place] [address] Care Team Providers Care Adobe Maker Name Role Phone Monserrat Steve MD Primary Care Provider [phone] Juan Pablo Adair PharmD Unavailable [phone] Reason for Visit * Reason Onset Date Comments Appointment Request 05/24/2024 Encounter Details Date Type Department Care Team ([facility] st Contact Info) Description 05/24/[address] [facility] [address] [place], [place] [phone] Monserrat Steve MD [address] [place], [place] [phone] Appointment Request Social History Tobacco Use Types Packs/Day Years [...] Recorded Patient Health Questionnaire-2 Score 1 09/16/2023 Internet Access Answer Date Recorded Internet Access Q1 Yes 04/26/2024 Internet Access Q2 Not on file 04/26/2024 Comments Unknown Sex and Gender Information Value Date Recorded Sex Assigned at Female 06/24/2022 10:16 AM EDT Legal Sex Female 10:16 AM EDT Gender Identity Female 06/24/2022 10:16 AM EDT Sexual Orientation Straight 06/24/2022 10 :16 AM EDT documented as of this encounter Miscellaneous Notes * Telephone Encounter - Neil Godoy - 05/24/2024 3:08 PM EDT Tc from patient calling to cancel appt for 05/26 and would like a call back to reschedule documented in this encounter Plan of Treatment Not on file documented as of this encounter Visit Diagnoses Not on filedocumented in this encounter Additional Health Concerns Assessment Noted Time PHQ-9 Depression Total Score: 0 08/21/20 22 11:00 AM EST documented as of this encounter Care Teams Adobe Maker Relationship Specialty Start Date End Date Monserrat Steve MD [address] [place] [address] PCP - General Family Medicine 08/25/18 Juan Pablo Adair, [place] [address] [place] [address] Pharmacist Internal Medicine 06/14/24 11/07/24 documented as of this encounter
--- OUTSIDE RECORDS SUMMARY | 2024-11-22 19:23 | XMS_ITS | Encounter Summary ---
Author Organization [employer] Address [address] [facility] [address] [place] [address] Care Team Providers Care Numerical Tool Programmer Name Role Phone Monserrat Steve MD Primary Care Provider [phone] Juan Pablo Adair PharmD Unavailable [phone] Reason for Visit * Reason Comments Med Refill Encounter Details Date Type Department Care Team ([facility] st Contact Info) Description 10/21/2024 Refill [facility] [address] [place], [place] [phone] Monserrat Steve MD [address] [place], [place] [phone] Social History Tobacco Use Types Packs/Day Years Used Date Smoking Tobacco: Former Cigarettes Passive Smoke Exposure: Past Smokeless Tobacco: Never Alcohol Use Standard Drinks/Week Comments Never 0 (1 standard drink = 0.6 oz pur e alcohol) Depression Answer Date Recorded Patient Health Questionnaire-9 Score 3 09/21/2024 Patient Health Questionnaire-9 Score 3 09/21/2024 Last PHQ-9: Questionnaire Data Not on file 0 09/21/2024 Housing Stability Answer Date Recorded What is [...] Date Recorded Patient Health Questionnaire-2 Score 0 09/21/2024 Internet Access Answer Date Recorded Internet Access [...] Assessment Noted Time PHQ-9 Depression Total Score: 3 09/21/19 25 1:31 PM EST documented as of this encounter Care Teams Numerical Tool Programmer Relationship Specialty Start Date End Date Monserrat Steve MD [address] [place] [address] PCP - General Family Medicine 08/25/18 Juan Pablo Adair, RowdyD [address] [place] [address] Pharmacist Internal Medicine 06/14/24 11/07/24 documented as of this encounter
--- OUTSIDE RECORDS SUMMARY | 2024-11-22 19:23 | XMS_ITS | Encounter Summary ---
Author Organization [employer] Address [address] [facility] [address] [place] [address] Care Team Providers Care Aquarium Tank Attendant Name Role Phone Monserrat Steve MD Primary Care Provider [phone] Juan Pablo Adair PharmD Unavailable [phone] Encounter Details Date Type Department Care Team (Late st Contact Info) Description 09/10/2023 Telephone [facility] [address] [place], [place] [phone] Monserrat Steve MD [address] [place], [place] [phone] Social History Tobacco Use Types Packs/Day Years Used Date Smoking Tobacco: Former Cigarettes Passive Smoke Exposure: Past Smokeless Tobacco: Never Depression Answer Date Recorded Patient Health Questionnaire-9 Score 0 08/21/2022 Housing Stability Answer Date Recorded What is your housing situation today? I have jacqueline barrett 06/17/[address] you li ve. Do you have problems with any of the following? None of the above 06/17/2023 Food Insecurity Answer Date Recorded Within the past 12 months, y ou worried that your food would run out before you got money to buy more: Never True 06/17/2023 Within the past 12 months,th e food you bought just didn't last and you didn't have enough money to get more: Never True Transportation Answer Date Recorded In the past 12 months, has l ack of transportation kept you from medical appts, meetings, work or from getting things needed for daily living? No 06/17/2023 Utilities Answer Date Recorded In the past 12 months, has t he electric, gas, oil or water company threatened to shut off services in your home? No 06/17/2023 Depression Answer Date Recorded Patient Health Questionnaire-2 [...] documented as of this encounter Care Teams Aquarium Tank Attendant Relationship Specialty Start Date End Date Monserrat Steve MD [address] [place] [address] PCP - General Family Medicine 08/25/18 Juan Pablo Adair, RowdyD [address] [place] [address] Pharmacist Internal Medicine 06/14/24 11/07/24 documented as of this encounter
--- OUTSIDE RECORDS SUMMARY | 2024-11-22 19:24 | XMS_ITS | Clinical Summary ---
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 Name Role Phone Monserrat Steve MD Primary Care Provider [phone] Allergies Active Allergy Reactions Criticality Noted Date Comments Hydromorphone Hives High 01/15/2023 Medications acetaminophen (Tylenol) 500 MG tablet take 2 tablet by oral route every 8 hours as needed Active anastrozole (Arimidex) 1 MG chemo tablet TAKE 1 TABLET BY MOUTH DAILY 022 Active biotin 5 MG tablet Active cinnamon 500 MG capsule Take 2 capsules (1,000mg) twice daily Active Menthol-Methyl Salicylate (Icy Hot) 10-30 % stick Apply to affected area once daily as needed Active bisacodyl (Dulcolax) 5 MG EC tabletIndicatio ns:Constipation , unspecified constipation type take 1 - 2 Tablet by oral route every 3 days as needed for constipation as needed for CONSTIPATION 30 tablet 3 022 Active Blood Glucose Monitoring Suppl (FreeStyle Lite) w/Device kitIndications: Diabetes mellitus type 2, diet-controlled (CMS/HCC) 1 kit in the morning. 1 kit 023 Active lisinopril 10 MG tabletIndicatio ns:Essential hypertension TAKE 1 TABLET BY MOUTH EVERY MORNING 90 tablet 3 024 Active TRUEplus Lancets 33G miscIndications :Diabetes mellitus type 2, diet-controlled (CMS/HCC) TEST BLOOD SUGAR EVERY MORNING DIRECTED 100 each 3 024 Active FREESTYLE LITE test stripIndication s:Diabetes mellitus type 2, diet-controlled (CMS/HCC) TEST BLOOD SUGAR EVERY DAY DIRECTED 100 strip 3 024 Active loratadine (Claritin) 10 MG tablet TAKE 1 TABLET BY MOUTH EVERY DAY 90 tablet 3 024 Active albuterol (Ventolin HFA) 108 (90 Base) MCG/ACT inhaler INHALE 2 PUFFS BY MOUTH EVERY 4 TO 6 HOURS NEEDED FOR WHEEZING OR SHORTNESS OF BREATH no MORE THAN 4 TIMES DAILY 18 g 1 024 Active ipratropium-alb uterol (Duo-Neb) 0.5-2.5 mg/3 mL nebulizer solutionIndicat ions:Chronic obstructive pulmonary disease, unspecified COPD type (CMS/HCC) INHALE 1 AMPULE USING A NEBULIZER FOUR TIMES DAILY 90 mL 3 024 Active cholecalciferol (Vitamin D-3) 25 MCG tablet TAKE 1 TABLET BY MOUTH EVERY MORNING 90 tablet 3 024 Active amoxicillin (Amoxil) 500 MG capsuleIndicati ons:Dental infection,Crack ed tooth Take 1 tab po bid for 14 days mozambican 28 capsule 024 Active omega-3 (Fish Oil) 1000 MG capsuleIndicati ons:Hypertrigly ceridemia TAKE 1 CAPSULE BY MOUTH TWICE DAILY IN THE MORNING AND IN THE EVENING 180 capsule 3 024 Active Aspirin Low Dose 81 MG EC tablet TAKE 1 TABLET BY MOUTH EVERY MORNING 90 tablet 3 024 Active atorvastatin (Lipitor) 80 MG tablet TAKE 1 TABLET BY MOUTH AT BEDTIME 90 tablet 3 024 Active docusate sodium (Colace) 100 MG capsule TAKE 1 CAPSULE BY MOUTH TWICE DAILY IN THE MORNING AND AT BEDTIME FOR CONSTIPATION 60 capsule 3 025 Active Multiple Vitamin (multivitamin) tablet Take 1 tablet by mouth Once per day. 30 tablet 11 025 Active montelukast (Singulair) 10 MG tabletIndicatio ns:Asthma with COPD (CMS/HCC) TAKE 1 TABLET BY MOUTH EVERY EVENING 90 tablet 3 025 Active cyanocobalamin (Vitamin B-12) 1000 MCG tablet TAKE 1 TABLET BY MOUTH EVERY MORNING 90 tablet 3 025 Active budesonide-form oterol (Symbicort) 80-4.5 MCG/ACT inhalerIndicati ons:Asthma with COPD (CMS/HCC) Inhale 2 puffs twice daily. May use 1-2 puffs as needed (No more than 12 puffs daily). Rinse mouth after use. 10.2 g 11 025 Active montelukast (Singulair) 10 MG tabletIndicatio ns:Asthma with COPD ([facility]/HCC) TAKE 1 TABLET BY MOUTH EVERY EVENING 90 tablet 3 024 2024 Discontinued cyanocobalamin (Vitamin B-12) 1000 MCG tablet TAKE 1 TABLET BY MOUTH EVERY MORNING 90 tablet 1 024 2024 Discontinued budesonide-form oterol (Symbicort) 80-4.5 MCG/ACT inhalerIndicati ons:Asthma with COPD (CMS/HCC) Inhale 2 puffs twice daily. May use 1-2 puffs as needed (No more than 12 puffs daily). Rinse mouth after use. 10.2 g 11 024 2024 Discontinued(R eorder (will not trigger notification to Pharmacy)) Active Problems Problem Noted Date Diagnosed Date Bilateral carpal tunnel syndrome 09/27/2024 Assessment & Plan (09/27/2024 9:15 AM EST): - continue judicious use of NSAID - continue activity modification - patient declines ortho referral for steroid injection for surgical consultation Lactose intolerance 09/27/2024 Assessment & Plan (09/27/2024 9:23 AM EST): - patient needs a letter so that her adult day program will serve lactose-free milk Cracked tooth 07/13/2024 Assessment & Plan (07/13/2024 11:26 AM EST): - Referred to [facility] dental 07/13/24 - ER precautions discussed. - Seek medical attention for worsening symptoms. Dental infection 07/13/2024 Assessment & Plan (07/13/2024 11:25 AM EST): - Prescribed amoxicillin (Amoxil) 500 MG capsule 07/13/24 - Referred to [facility] dental 07/13/24 - ER precautions discussed. - Seek medical attention for worsening symptoms. Palpitation 06/14/2024 Constipation 04/29/2024 Assessment & Plan (04/29/2024 12:04 PM EDT): - continue dulcolax - will add colace History of Helicobacter pylori infection 023 Assessment & Plan (10/21/2023 10:37 AM EST): - diagnosed and treated in November 2022 - recent weight loss - symptom has resolved - recheck H. Pylori stool antigen Assessment & Plan (07/11/2023 5:32 AM EST): - diagnosed and treated in November 2022 - recent weight loss - symptom has resolved - recheck H. Pylori stool antigen Assessment & Plan (03/02/2023 7:12 AM EDT): - diagnosed and treated in November 2022 - recent weight loss - symptom has resolved - recheck H. Pylori stool antigen Weight loss 12/05/2022 Assessment & Plan (10/21/2023 10:38 AM EST): -Due to loss of appetite. - lab was normal and no sign of cancer recurrence - will cont monitoring - pt is recommended to drink nutritional supplement, up to 2-bottles a day - will check status of nutritional supplement Assessment & Plan (07/11/2023 5:27 AM EST): - lab was normal and no sign of cancer recurrence - will cont monitoring - pt is recommended to drink nutritional supplement, up to 2-bottles a day - will check status of nutritional supplement Assessment & Plan (12/05/2022 12:35 PM EDT): Continued to lose weight -will cont monitoring -pt is recommended to drink nutritional supplement, up to 2-bottles a day -will check status of nutritional supplement 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 -Followed by [facility], last seen January 2024 -[id number] stage I -ER and UT positive, Her-2/norbert negative -s/p lumpectomy on 03/31/2019. -s/p radiation Tx in MarchApr 2019 -Last mammo on 01/26/24 BI-RADS 2 -Completed Zometa for 2yrs, completed 01/04/21. -Continue anastrazole, plan to treat for 5 years. Assessment & Plan (04/29/2024 12:03 PM EDT): -Diagnosed in February 2019. -Followed by [facility], last seen Aug 2022 -[id number] stage I -ER and UT positive, Her-2/norbert negative -s/p lumpectomy on 03/31/2019. -s/p radiation Tx in MarchApr 2019 -Last mammo on 01/26/24 BI-RADS 2 -Completed Zometa for 2yrs, completed 01/04/21. -Continue anastrazole, plan to treat for 5 years. Assessment & Plan (10/21/2023 10:37 AM EST): -Diagnosed in February 2019. -Followed by [facility], last seen Aug 2022 -[id number] stage I -ER and UT positive, Her-2/norbert negative -s/p lumpectomy on 03/31/2019. -s/p radiation Tx in MarchApr 2019 -Last mammo on 10/08/22 BI-RADS 2 -Completed Zometa for 2yrs, completed 01/04/21. -Continue anastrazole, plan to treat for 5 years. Assessment & Plan (07/11/2023 5:32 AM EST): -Diagnosed in February 2019. -Followed by [facility], last seen Aug 2022 -[id number] stage I -ER and UT positive, Her-2/norbert negative -s/p lumpectomy on 03/31/2019. -s/p radiation Tx in MarchApr 2019 -Last mammo on 10/08/22 BI-RADS 2 -Completed Zometa for 2yrs, completed 01/04/21. -Continue anastrazole, plan to treat for 5 years. Assessment & Plan (08/25/2022 11:30 AM EST): -Diagnosed in February 2019. -Followed by [facility], last seen in February 2022. -[id number] stage I -ER and UT positive, Her-2/norbert negative -s/p lumpectomy on 03/31/2019. -s/p radiation Tx in MarchApr 2019 -Last mammo on 03/07/22 BI-RADS 2 -Completed Zometa for 2yrs, completed 01/04/21. -Continue anastrazole, plan to treat for 5 years. Ductal carcinoma in situ (DCIS) of left breast 0 08/25/2022 Assessment & Plan (09/27/2024 9:20 AM EST): -Diagnosed in February 2019. -Followed by [facility], last seen in January 2024. -[id number] stage I -ER and UT positive, Her-2/norbert negative -s/p lumpectomy on 03/31/2019. -s/p radiation Tx in MarchApr 2019 -Last mammo on 01/26/24 BI-RADS 2 -Completed Zometa for 2yrs, completed 01/04/21. -Continue anastrazole, plan to treat for 5 years. Assessment & Plan (04/29/2024 12:02 PM EDT): -Diagnosed in February 2019. -Followed by [facility], last seen in Aug 2022. -[id number] stage I -ER and UT positive, Her-2/norbert negative -s/p lumpectomy on 03/31/2019. -s/p radiation Tx in MarchApr 2019 -Last mammo on 01/26/24 BI-RADS 2 -Completed Zometa for 2yrs, completed 01/04/21. -Continue anastrazole, plan to treat for 5 years. Assessment & Plan (10/21/2023 10:37 AM EST): -Diagnosed in February 2019. -Followed by [facility], last seen in Aug 2022. -[id number] stage I -ER and UT positive, Her-2/norbert negative -s/p lumpectomy on 03/31/2019. -s/p radiation Tx in MarchApr 2019 -Last mammo on 10/08/22 BI-RADS 2 -Completed Zometa for 2yrs, completed 01/04/21. -Continue anastrazole, plan to treat for 5 years. Assessment & Plan (07/11/2023 5:32 AM EST): -Diagnosed in February 2019. -Followed by [facility], last seen in Aug 2022. -[id number] stage I -ER and UT positive, Her-2/norbert negative -s/p lumpectomy on 03/31/2019. -s/p radiation Tx in MarchApr 2019 -Last mammo on 10/08/22 BI-RADS 2 -Completed Zometa for 2yrs, completed 01/04/21. -Continue anastrazole, plan to treat for 5 years. Assessment & Plan (02/26/2023 11:35 AM EDT): -Diagnosed in February 2019. -Followed by [facility], last seen in February 2022. -[id number] stage I -ER and UT positive, Her-2/norbert negative -s/p lumpectomy on 03/31/2019. -s/p radiation Tx in MarchApr 2019 -Last mammo on 10/08/22 BI-RADS 2 -Completed Zometa for 2yrs, completed 01/04/21. -Continue anastrazole, plan to treat for 5 years. Assessment & Plan (12/05/2022 1:17 PM EDT): -Diagnosed in February 2019. -Followed by [facility], last seen in February 2022. -[id number] stage I -ER and UT positive, Her-2/norbert negative -s/p lumpectomy on 03/31/2019. -s/p radiation Tx in MarchApr 2019 -Last mammo on 10/08/22 BI-RADS 2 -Completed Zometa for 2yrs, completed 01/04/21. -Continue anastrazole, plan to treat for 5 years. Assessment & Plan (08/25/2022 11:27 AM EST): -Dx on October 2012 -s/p lumpectomy November 2012 -Last mammo on 03/07/22 BI-RADS 2 -Followed by [facility] breast speciality team. Last seen in February 2022. FU in 12 mo. -Currently on anastrazole and zoledronic acid -Continue current medications -Continue working on lifestyle modificaitoins to lower the recurrence risk History of severe acute resp iratory syndrome coronavirus 2 (SARS-CoV-2) disease 08/16/2022 Vitamin B12 deficiency 04/28/2018 Assessment & Plan (11/07/2023 5:21 PM EDT): Most recent lab, normal results -continue supplementation Assessment & Plan (12/05/2022 1:18 PM EDT): Most recent lab, normal results -continue supplementation Allergic rhinitis 06/22/2015 Assessment & Plan (11/07/2023 5:21 PM EDT): -Continue loratadine and montelukast Assessment & Plan (08/25/2022 11:37 AM EST): -Continue loratadine and montelukast Essential hypertension 06/22/2015 Assessment & Plan (09/27/2024 9:15 AM EST): -Goal BP < 140/90 per JNC-8. -BP at goal today -Continue working on lifestyle modifications -Current medications: lisinopril 10 mg daily -Advised to monitor at home and return to the clinic if worsened Assessment & Plan (04/29/2024 11:43 AM EDT): -Goal BP < 140/90 per JNC-8. -BP at goal today -Continue working on lifestyle modifications -Current medications: lisinopril 10 mg daily -Advised to monitor at home and return to the clinic if worsened Assessment & Plan (10/21/2023 10:36 AM EST): -Goal BP < 140/90 per JNC-8. BP at goal -Continue working on lifestyle modifications -Current medications: lisinopril 10 mg daily -Advised to monitor at home and return to the clinic if worsened Assessment & Plan (09/16/2023 2:55 PM EST): Controlled -Goal BP < 140/90 per JNC-8. BP at goal -Current medications: lisinopril 10 mg daily Assessment & Plan (07/11/2023 5:25 AM EST): -Goal BP < 140/90 per JNC-8. BP at goal -Continue working on lifestyle modifications -Current medications: lisinopril 10 mg daily -Advised to monitor at home and return to the clinic if worsened Assessment & Plan (02/26/2023 11:35 AM EDT): -Goal BP < 140/90 per JNC-8. BP at goal -Continue working on lifestyle modifications -Current medications: lisinopril 10 mg daily -Advised to monitor at home and return to the clinic if worsened Assessment & Plan (12/05/2022 12:34 PM EDT): -Goal BP < 140/90 per JNC-8. BP at goal -Continue working on lifestyle modifications -Current medications: lisinopril 10 mg daily -Advised to monitor at home and return to the clinic if worsened Assessment & Plan (08/25/2022 11:35 AM EST): -Goal BP < 140/90 per JNC-8. BP at goal -Continue working on lifestyle modifications -Current medications: lisinopril 10 mg daily -Advised to monitor at home and return to the clinic if worsened Primary osteoarthritis involving multiple joints 06/22/2015 Vitamin D deficiency 06/22/2015 Asthma with COPD 08/02/2013 Assessment & Plan (09/27/2024 9:17 AM EST): -Winter 2018, hospitalized in [facility] for pneumonia -PFT in 2011- Moderately/Obstructive Airway Disease -Systemic steroid treatment 3-4 times per year. -ED/hospitalization due to SOB about 2 times per year ( ED in Mar 2014 for acute bronchitis and hospitalization for atypical CP in Aug 2014) -Continue budesonide / formoterol (Symbicort) -Continue Singulair 10 mg qhs -Continue Albuterol HFA prn. -Continue DuoNeb prn. -Previously tried Advair, but felt nauseous with each use. Tried fluticasone (Arnuity and Flovent). Discontinued since starting budesonide / formoterol (Symbicort). -Previously tried Spiriva, but felt nauseous and self-discontinued. Discontinued umeclidinium (Incruse). No LAMA at this time. -Non-smoker. Assessment & Plan (04/29/2024 12:00 PM EDT): -Winter 2018, hospitalized in [facility] for pneumonia -PFT in 2011- Moderately/Obstructive Airway Disease -Systemic steroid treatment 3-4 times per year. -ED/hospitalization due to SOB about 2 times per year ( ED in Mar 2014 for acute bronchitis and hospitalization for atypical CP in Aug 2014) -Continue Incruse -Switch from Flovent HFA 220 mcg TWO puffs bid, Arnuity Ellipta 200 mcg once daily -Continue Singulair 10 mg qhs -Continue Albuterol HFA prn. -Continue DuoNeb prn. -Previously tried Advair, but felt nauseous with each use. Tolerating Flovent. -Previously tried Spiriva, but felt nauseous and self-discontinued. -Non-smoker. -Will check status of arnuity, will have pharmacist to educate on new inhaler Assessment & Plan (10/21/2023 10:36 AM EST): -Winter 2018, hospitalized in [facility] for pneumonia -PFT in 2011- Moderately/Obstructive Airway Disease -Systemic steroid treatment 3-4 times per year. -ED/hospitalization due to SOB about 2 times per year ( ED in Mar 2014 for acute bronchitis and hospitalization for atypical CP in Aug 2014) -Continue Incruse -Switch from Flovent HFA 220 mcg TWO puffs bid, Arnuity Ellipta 200 mcg once daily -Continue Singulair 10 mg qhs -Continue Albuterol HFA prn. -Continue DuoNeb prn. -Previously tried Advair, but felt nauseous with each use. Tolerating Flovent. -Previously tried Spiriva, but felt nauseous and self-discontinued. -Non-smoker. Assessment & Plan (09/16/2023 2:55 PM EST): No recent exacerbations Using her inhalers Assessment & Plan (07/11/2023 5:16 AM EST): -Winter 2018, hospitalized in [facility] for pneumonia -PFT in 2011- Moderately/Obstructive Airway Disease -Systemic steroid treatment 3-4 times per year. -ED/hospitalization due to SOB about 2 times per year ( ED in Mar 2014 for acute bronchitis and hospitalization for atypical CP in Aug 2014) -Continue Incruse -Switch from Flovent HFA 220 mcg TWO puffs bid, Arnuity Ellipta 200 mcg once daily -Continue Singulair 10 mg qhs -Continue Albuterol HFA prn. -Continue DuoNeb prn. -Previously tried Advair, but felt nauseous with each use. Tolerating Flovent. -Previously tried Spiriva, but felt nauseous and self-discontinued. -Non-smoker. Assessment & Plan (02/26/2023 11:31 AM EDT): -Winter 2018, hospitalized in [facility] for pneumonia -PFT in 2011- Moderately/Obstructive Airway Disease -Systemic steroid treatment 3-4 times per year. -ED/hospitalization due to SOB about 2 times per year ( ED in Mar 2014 for acute bronchitis and hospitalization for atypical CP in Aug 2014) -Continue Incruse -Continue Flovent HFA 220 mcg TWO puffs bid -Continue Singulair 10 mg qhs -Continue Albuterol HFA prn. -Continue DuoNeb prn. -Previously tried Advair, but felt nauseous with each use. Tolerating Flovent. -Previously tried Spiriva, but felt nauseous and self-discontinued. -Non-smoker. Assessment & Plan (08/25/2022 11:34 AM EST): -Winter 2018, hospitalized in [facility] for pneumonia -PFT in 2011- Moderately/Obstructive Airway Disease -Systemic steroid treatment 3-4 times per year. -ED/hospitalization due to SOB about 2 times per year ( ED in Mar 2014 for acute bronchitis and hospitalization for atypical CP in Aug 2014) -Continue Incruse -Continue Flovent HFA 220 mcg TWO puffs bid -Continue Singulair 10 mg qhs -Continue Albuterol HFA prn. -Continue DuoNeb prn. -Previously tried Advair, but felt nauseous with each use. Tolerating Flovent. -Previously tried Spiriva, but felt nauseous and self-discontinued. -Non-smoker. Type 2 diabetes mellitus 05/21/2012 Assessment & Plan (09/27/2024 9:20 AM EST): -A1C 6.3% on 04/29/24 -previously tried metformin ER 500 mg daily -currently diet-controlled -continue working on lifestyle modifications -Last lipid profile: 10/21/23 TC 156; TG 75; HDL 46; LDL 95 -Last microalbumin test: 10/21/23, UACR 9.4 -Last foot exam: 09/21/24 -Last comprehensive eye exam: 07/09/22 -IZ up to date Assessment & Plan (04/29/2024 12:01 PM EDT): -A1C 6.3% on 04/29/24 -previously tried metformin ER 500 mg daily -currently diet-controlled -continue working on lifestyle modifications -Last lipid profile: 10/21/23 TC 156; TG 75; HDL 46; LDL 95 -Last microalbumin test: 10/21/23, UACR 9.4 -Last foot exam: 07/10/23 -Last comprehensive eye exam: 07/09/22 -IZ up to date Assessment & Plan (11/07/2023 5:20 PM EDT): -A1C 6.5% on 09/16/23, slightly increased from 6.3% on 12/02/22 -previously tried metformin ER 500 mg daily -currently diet-controlled -continue working on lifestyle modifications -Last lipid profile: 12/02/22 TC 159; TG 103; HDL 49; LDL 90 -Last microalbumin test: 12/02/22 UACR 18 -Last foot exam: 07/10/23 -Last comprehensive eye exam: 07/09/22 -IZ up to date Assessment & Plan (09/16/2023 2:56 PM EST): Glucose today 125 A1C on 07/10/23 6.5%, -currently diet-controlled -continue working on lifestyle modifications -Last lipid profile: 12/02/22 TC 159; TG 103; HDL 49; LDL 90 -Last microalbumin test: 12/02/22 UACR 18 -Last foot exam: 07/10/23 -Last comprehensive eye exam: 07/09/22 -IZ up to date Assessment & Plan (07/11/2023 5:37 AM EST): A1C 6.5% on 07/10/23, slightly increased from 6.3% on 12/02/22 -previously tried metformin ER 500 mg daily -currently diet-controlled -continue working on lifestyle modifications -Last lipid profile: 12/02/22 TC 159; TG 103; HDL 49; LDL 90 -Last microalbumin test: 12/02/22 UACR 18 -Last foot exam: 07/10/23 -Last comprehensive eye exam: 07/09/22 -IZ up to date Assessment & Plan (02/26/2023 11:32 AM EDT): A1C 6.3% on 12/02/22 improving from 6.8% 06/17/22 -continue metformin ER 500 mg daily -continue working on lifestyle modifications -Last lipid profile: 12/02/22 TC 159; TG 103; HDL 49; LDL 90 -Last microalbumin test: 12/02/22 UACR 18 -Last foot exam: 02/26/23 -Last comprehensive eye exam: 07/09/22 -IZ up to date Assessment & Plan (12/05/2022 12:22 PM EDT): A1C 6.3% on 12/02/22 improving from 6.8% 06/17/22 -continue metformin ER 500 mg daily -continue working on lifestyle modifications -Last lipid profile: 12/02/22 TC 159; TG 103; HDL 49; LDL 90 -Last microalbumin test: 12/02/22 UACR 18 -Last foot exam: 11/07/21 -Last comprehensive eye exam: 07/09/22 -IZ up to date Dyslipidemia 05/21/2012 Assessment & Plan (09/27/2024 9:20 AM EST): -Current medications: atorvastatin 80 mg qhs; omega-3 -Lab: 10/21/23 TC 156; TG 75; HDL 46; LDL 95 -She is prescribed high-intensivy statin therapy per guideline. -Continue working on lifestyle modifications Assessment & Plan (04/29/2024 11:44 AM EDT): -Current medications: atorvastatin 80 mg qhs; omega-3 -Lab: 10/21/23 TC 156; TG 75; HDL 46; LDL 95 -She is prescribed high-intensivy statin therapy per guideline. -Continue working on lifestyle modifications Assessment & Plan (10/21/2023 10:38 AM EST): -Current medications: atorvastatin 80 mg qhs; omega-3 -Lab: 12/02/22 TC 159; TG 103; HDL 49; LDL 90 -She is prescribed high-intensivy statin therapy per guideline. -Continue working on lifestyle modifications Assessment & Plan (07/11/2023 5:30 AM EST): -Current medications: atorvastatin 80 mg qhs; omega-3 -Lab: 12/02/22 TC 159; TG 103; HDL 49; LDL 90 -She is prescribed high-intensivy statin therapy per guideline. -Continue working on lifestyle modifications Assessment & Plan (03/02/2023 7:14 AM EDT): -Current medications: atorvastatin 80 mg qhs; omega-3 -Lab: 12/02/22 TC 159; TG 103; HDL 49; LDL 90 -She is prescribed high-intensivy statin therapy per guideline. -Continue working on lifestyle modifications Assessment & Plan (12/05/2022 12:23 PM EDT): -Current medications: atorvastatin 80 mg qhs; omega-3 -Lab: 03/18/22 TC 275; TG 142; HDL 52; LDL 223. -She is prescribed high-intensivy statin therapy per guideline. -Continue working on lifestyle modifications Assessment & Plan (08/25/2022 11:37 AM EST): -Current medications: atorvastatin 80 mg qhs; omega-3 -Lab: 03/18/22 TC 275; TG 142; HDL 52; LDL 223. -She is prescribed high-intensivy statin therapy per guideline. -Continue working on lifestyle modifications Obesity 05/21/2012 Assessment & Plan (10/21/2023 10:36 AM EST): -Currently losing weight -Continue achieving and maintaining healthy weight with healthy measures Assessment & Plan (07/11/2023 5:28 AM EST): -Currently losing weight -Continue achieving and maintaining healthy weight with healthy measures Assessment & Plan (08/25/2022 11:50 AM EST): -BMI 32.79 -Continue achieving and maintaining healthy weight Varicose veins of both lower extremities 012 Assessment & Plan (10/21/2023 10:37 AM EST): - Hx DVT and superficial phlebitis - continue leg elevation and compression stocking - continue physical activity as tolerated - pt requests a new pair of compression stocking; will prescribe Assessment & Plan (07/11/2023 5:25 AM EST): - Hx DVT and superficial phlebitis - continue leg elevation and compression stocking - continue physical activity as tolerated - pt requests a new pair of compression stocking; will prescribe Resolved Problems Problem Noted Date Diagnosed Date Resolved Date Intraductal carcinoma in situ of breast 06/22/2015 08/25/2022 Encounters Date Type Department Care Team Description 11/08/2024 Refill [facility] [address] [place] [address] Monserrat Steve MD Asthma with COPD ([facility]) 11/07/2024 Refill [facility] [address] [place] [address] Monserrat Steve MD Asthma with COPD ([facility] [facility]) 10/21/2024 Refill [facility] [address] [place] [address] Monserrat Steve MD 10/21/2024 Refill [facility] [address] [place] [address] Monserrat Steve MD 10/13/2024 Telephone [facility] [address] [place] [id number] Valerie Church [place] leela recall 09/29/2024 Telephone [facility] [address] [place] [address] Valerie Church [place] dme brace 09/23/2024 Telephone [facility] [address] [address] Monserrat Steve MD [facility] Plan 09/21/2024 1:00 PM EST Office Visit [facility] [place] [address] Monserrat Steve MD Osteoporosis screening (Primary Dx); Type 2 diabetes mellitus without complication, without long-term current use of insulin ([facility]); Dietary counseling; Exercise counseling; Class 1 obesity due to excess calories with serious comorbidity and body mass index (BMI) of 32.0 to 32.9 in adult; Vitamin D deficiency; Malignant neoplasm of upper-outer quadrant of right breast in female, estrogen receptor positive (CMS/HCC); Bilateral carpal tunnel syndrome; Essential hypertension; Asthma with COPD (CMS/HCC); Primary osteoarthritis involving multiple joints; Ductal carcinoma in situ (DCIS) of left breast; Dyslipidemia; Lactose intolerance 09/21/2024 Travel 09/08/2024 Refill [facility] [address] [place] [address] Monserrat Steve MD from Last 3 Months Immunizations Name Administration Dates Next Due Hep B, adult 04/26/2014,08/02/2013,01/08/2013 Influenza High-dose Quadriva lent Preservative Free 07/10/2023,05/30/2021,07/17/2020 Influenza injectable quadriv alent IIV4 with preservative 05/26/2017,05/13/2016,05/23/2015 Influenza injectable quadriv alent preservative free 08/06/2018 Influenza, High Dose Seasona l, Preservative Free 10/25/2019 Influenza, IIV3, injectable 06/01/2009,1 ,05/11/2007,07/21,08/09/2004 Influenza, Split (incl. ismael fied surface antigen) 08/02/2013,05/28/2012 PPD Test 10/18/2022 Pfizer Covid-19 Vaccine 12+ 12/01/2020, Pneumococcal Conjugate PCV 13 11/22/2014 Pneumococcal Polysaccharide PPSV23 04/26/2014, TD (adult), 2 Lf tetanus tox oid, preservative free, adsorbed 01/04/2008 Tdap 02/26/2023,09/06/2011 Zoster, live 11/22/2014 Family History Medical History Relation Name Comments Spina bifida Daughter end stage renal disease Daughter Relation Name Status Comments Daughter Social History Tobacco Use Types Packs/Day Years Used Date Smoking Tobacco: Former Cigarettes Passive Smoke Exposure: Past Smokeless Tobacco: Never Tobacco Cessation:Counseling Given: Not Answered Alcohol Use Standard Drinks/Week Comments Never 0 [...] Orientation Straight 06/24/2022 10 :16 AM EDT Last Filed Vital Signs Vital Sign Reading Time Taken Comments Blood Pressure 136/78 09/21/2024 1:00 PM EST Pulse 60 09/21/2024 1:00 PM EST Temperature 37.2 ??C (98.9 ??F) 09/21/2024 1:00 PM ES T Respiratory Rate 20 09/21/2024 1:00 PM EST Oxygen Saturation 96% 07/13/2024 10:56 AM EST Inhaled Oxygen Concentration - - Weight 77.1 kg (170 lb) 09/21/2024 1:00 PM EST Height 154.9 cm (5' 1 ) 09/21/2024 1:00 PM EST Body Mass Index 32.12 09/21/2024 1:00 PM EST Plan of Treatment Health Maintenance Due Date Last Done Comments Dental Oral Exam 1945 Dental Prophylaxis 1945 Dental X-Ray: Bitewings 1945 Dental X-Ray: Full Mouth 1945 Eye Exam 1957 Zoster Vaccines (2 of 3) 01/17/2015 11/22/2014 RSV Patients and Patients Aged 60 years or older (1 - 1-dose 75+ series) 2022 Mammogram 10/08/2023 10/08/2022, 10/08/2022 COVID-19 Vaccine ( season) 2024 12/01/2020, 11/10/2020 Influenza Vaccine (#1) 2024 3, 05/30/2021, 07/17/2020, Additional history exists SDOH Screening 10/21/2024 10/21/2023 Diabetes: Hemoglobin A1C 10/27/202404/29/2 024, 09/16/2023, 07/10/2023, Additional history exists Diabetes: Urine Protein Screening 09/09/2025 09/09/2024, 10/21/2023, 12/02/2022, Additional history exists Lipid Panel 09/09/2025 09/09/2024, 09/26, 12/02/2022, Additional history exists Alcohol/Substance Use Screening 09/21/2025 09/21/2024 Depression Screening 09/21/2025 09/21/2024, 09/21/19 25 Diabetes: Foot Exam 09/21/2025 09/21/2024, 07/10/2023, 07/10/2023, Additional history exists Tobacco Screening 09/21/2025 09/21/2024 DTaP/Tdap/Td Vaccines (3 - Td or Tdap) 02/26/2033 02/26/2023, 09/06/2011, 01/04/2008 Hepatitis B Vaccines Completed 04/26/2014, 08/02/2013, 01/08/2013 Pneumococcal Vaccine: 50+ Years Completed 11/22/2014, 04/26/2014, 07/06/2007 Hepatitis C Screening Completed 10/27/2019 HIB Vaccines Aged Out No longer eligi [...] patient's age to complete this topic Meningococcal Vaccine Aged Out No jessica luis eligible based on patient's age to complete this topic RSV under 20 months Aged Out No longe r eligible based on patient's age to complete this topic Rotavirus Vaccines Aged Out No longer eligible based on patient's age to complete this topic Procedures Procedure Name Priority Date/Time Associated Diagnosis Comments POCT GLUCOSE Routine 09/21/2024 1:02 PM EST Type 2 diabetes mellitus without complication, without long-term current use of insulin ([facility]) LIPID PANEL WITH REFLEX TO DIRECT LDL Routine 09/09/2024 8:50 AM EST Dyslipidemia ALBUMIN, RANDOM URINE W/CREATININE Routine 09/09/2024 8:50 AM EST Type 2 diabetes mellitus without complication, without long-term current use of insulin ([facility]/HCC) Essential hypertension COMPREHENSIVE METABOLIC PANEL Routine 09/09/2024 8:50 AM EST Type 2 diabetes mellitus without complication, without long-term current use of insulin ([facility]) Essential hypertension Dyslipidemia POCT GLYCOSYLATED HEMOGLOBIN (HGB A1C) Routine 04/29/2024 11:37 AM EDT Type 2 diabetes mellitus without complication, without long-term current use of insulin ([facility]/HCC) BI MAMMOGRAM DIAGNOSTIC TOMOSYNTHESIS BILATERAL Routine 10/08/2022 11:51 AM EST Breast pain, left ZZZ HISTORICAL HEPATITIS C ANTIBODY RFLX Routine 10/27/2019 11:55 AM EST from Last 3 Months or Most Recently Relevant to Health Maintenance Results * POCT Glucose (09/21/2024 1:02 PM EST) Glucose Blood, POC 139 60 - 200 mg/dL Comment:Random QC Media Lot # [id number] Lot# Expiration Date [id number] Blood Capillary blood specimen / Unknown 09/21/2024 1:02 PM EST Monserrat Steve MD POINT OF CARE TEST ENTER/EDIT OR DERABLES Final Result * (ABNORMAL) Lipid Panel with Reflex to Direct LDL (09/09/2024 8:50 AM EST) Triglycerides 112 <150 mg/dL [facility] Comment:Desirable Triglyceri de: less than 150 mg/dLBorderline High Triglyceride 150-199 mg/dLHigh Triglyceride: 200-499 mg/dLVery High Triglyceride: greater than or equal to 5OO mg/dL Cholesterol 242(H) <200 mg/dL [facility] Comment:Desirable Cholestero l: less than 200 mg/dLBorderline High Cholesterol: 200-239 mg/dLHigh Cholesterol: greater than 239 mg/dL LDL Cholesterol Calculated 175(H) <100 mg/dL [facility] Comment:Desirable LDL: less than 100 mg/dLNear Optimal/Above Optimal LDL: 110- 129 mg/dLBorderline High LDL: 130-159 mg/dLHigh LDL: 160-189 mg/dLVery High LDL: greater than or equal to 190 mg/dL HDL Cholesterol 45 >40 mg/dL [facility] Comment:Desirable HDL: great er than 40 mg/dL Note: This HDL assay may give artificially low results in patients with liver disease. Blood 09/09/2024 8:50 AM EST 09/09/2024 11:12 AM EST Monserrat Steve MD LAB BLOOD ORDERABLES Final Resul t Performing Organization Address [facility] Co de Phone Number [facility] [address] [place] [phone] * Albumin, Random Urine W/Creatinine (09/09/2024 8:50 AM EST) Creatinine, Urine 87.87 mg/dL [facility] Microalbumin Urine 6.0 mg/L [facility] Microalbum Creatinine Ratio Ur 6.8 <30 ug/mg cr [facility] Comment:Albumin/Creatinine R atio Reference Ranges: Normal: < 30 ug/mg creatinine Microalbuminuria: 30 - 300 ug/mg creatinineClinical Albuminuria: > 300 ug/mg creatinine Urine 09/09/2024 8:50 AM EST 09/09/2024 11:09 AM EST Monserrat Steve MD LAB URINE ORDERABLES Final Resul t Performing Organization Address [facility] Co de Phone Number [facility] [address] [place] [phone] * (ABNORMAL) Comprehensive Metabolic Panel (09/09/2024 8:50 AM EST) Sodium 141 135 - 145 mmol/L [facility] Potassium 4.3 3.3 - 5.1 mmol/L [facility] Chloride 107 96 - 108 mmol/L [facility] Carbon Dioxide 29 22 - 29 mmol/L [facility] Anion Gap 9(L) 12 - 20 [facility] Urea Nitrogen (BUN) 15 9 - 16 mg/dL [facility] Creatinine, Serum 0.69 0.5 - 1.4 mg/dL [facility] Estimated Glomerular Filt Rate >60 [facility] Comment:Chronic Kidney Disea se: Estimated GFR < 60 mL/min/[id number] Kidney Disease: Estimated GFR < 15 mL/min/1.73m2 Glucose 107 60 - 115 mg/dL [facility] Calcium 9.0 8.4 - 10.2 mg/dL [facility] Bilirubin, Total 0.2 0.0 - 1.0 mg/dL [facility] Aspartate Amino Transferase 19 5 - 31 U/L [facility] Alanine Aminotransferase 13 0 - 31 U/L [facility] Total Protein 7.4 6.5 - 8.0 g/dL [facility] Albumin Level 3.8 3.5 - 5.0 g/dL [facility] Alkaline Phosphatase 100 39 - 117 U/L [facility] Blood Venous blood specimen / Unknown 09/09/2024 8:50 AM EST 09/09/2024 11:12 AM EST Monserrat Steve MD LAB BLOOD ORDERABLES Final Resul t Performing Organization Address City/State/[facility] Co de Phone Number [facility] [address] [place] [phone] * (ABNORMAL) POCT glycosylated hemoglobin (Hgb A1c) (04/29/2024 11:37 AM EDT) Hemoglobin A1C 6.3(A) 4.0 - 6.0 % QC Media Lot # [id number] Blood Capillary blood specimen / Unknown 04/29/2024 11:37 AM EDT Monserrat Steve MD POINT OF CARE TEST ENTER/EDIT OR DERABLES Final Result * BI Mammogram Diagnostic Tomosynthesis Bilateral (10/08/2022 11:51 AM EST) Anatomical Region Laterality Modality Breast Bilateral Mammography Monserrat Steve MD IMG BI PROCEDURES Final Result * HEPATITIS C ANTIBODY RFLX (10/27/2019 11:55 AM EST) HEPATITIS C ANTIBODY NONREACTIVE NONREACTIVE [facility] Comment: Antibodies to HCV not detected; does not exclude early acute HCV infection. 10/27/2019 11:5 5 AM EST Monserrat Steve MD HISTORICAL/NON ORDERABLE LABS Fi nal Result [facility] [address] from Last 3 Months or Most Recently Relevant to Health Maintenance Insurance [facility] Care Teams Chimney Mechanic Relationship Specialty Start Date End Date Monserrat Steve MD [address] [place] [phone] PCP - General Family Medicine 08/25/18
[2024-11-22 19:30] LABS: Alanine Aminotransferase 10 U/L (0-31); Albumin Level 3.8 g/dL (3.5-5.0); Alkaline Phosphatase 100 U/L (39-117); Anion Gap 14 (12-20); Aspartate Amino Transferase 18 U/L (5-31); Bilirubin Total 0.3 mg/dL (0.0-1.0); Blood Urea Nitrogen 11 mg/dL (9-16); Calcium 9.3 mg/dL (8.4-10.2); Carbon Dioxide 27 mmol/L (22-29); Chloride 105 mmol/L (96-108); Creatinine Clr Calc Pharmacy 70.3; Estimated Glomerular Filt Rate > 60; Glucose Random 139 mg/dL (60-115); Potassium 3.8 mmol/L (3.3-5.1); Sodium 142 mmol/L (135-145); Total Protein 6.9 g/dL (6.5-8.0)
--- NOTE | 2024-11-22 19:50 | ED.GENADULT ---
HPI - General Adult General Chief complaint: General Medical Stated complaint: no sex/age listed. cc sob, asthma wheezing 2xdays Time Seen by Provider: 11/22/24 19:37 Source: patient and EMS Mode of arrival: EMS Limitations: no limitations History of Present Illness ED Provider: Dr. Elizabeth Balderrama HPI narrative: Patient comes to the emergency room complaining of an asthma exacerbation. Patient states that he is very sensitive to smells which triggers her asthma. Patient states that she was out on the street, probably some kind of smell triggered her asthma. Patient states that she had a difficult time breathing. The ambulance was called. Patient was given IV DuoNeb, albuterol, 2 g of magnesium and 125 mg of Solu-Medrol. By the time that the patient arrived to the emergency room, patient was breathing much more comfortable, speaking in full sentences with minimal wheezing. At this time, patient states that she almost feels back to baseline Related Data Home Medications ?Medication ?Instructions ?Recorded ?Confirmed aspirin 81 mg tablet,delayed 81 mg PO DAILY 11/15/20 11/29/22 release atorvastatin 10 mg tablet (Lipitor) 10 mg PO DAILY 11/15/20 11/29/22 fluticasone propionate 50 1 inh inhalation BID 11/15/20 11/29/22 mcg/actuation blister powder for inhalation (Flovent Diskus) lisinopril 2.5 mg tablet 2.5 mg PO DAILY 11/15/20 11/29/22 loratadine 10 mg capsule 10 mg PO DAILY 11/15/20 11/29/22 anastrozole 1 mg tablet 1 mg PO DAILY 11/29/22 11/29/22 atorvastatin 80 mg tablet 80 mg PO DAILY 11/29/22 11/29/22 bisacodyl 5 mg tablet,delayed 5 mg PO DAILY 11/29/22 11/29/22 release calcium 600 mg (as 1 tab PO 11/29/22 11/29/22 carbonate)-vitamin D3 10 mcg (400 unit) tablet cholecalciferol (vitamin D3) 25 25 mcg PO DAILY 11/29/22 11/29/22 mcg (1,000 unit) tablet ipratropium 0.5 mg-albuterol 3 mg ml inhalation 11/29/22 11/29/22 (2.5 mg base)/3 mL nebulization soln lisinopril 10 mg tablet 10 mg PO QAM 11/29/22 11/29/22 montelukast 10 mg tablet 10 mg PO QPM 11/29/22 11/29/22 omega-3 300 mg-dha 120 mg-epa 180 1 cap PO 11/29/22 11/29/22 mg-fish oil 1,000 mg capsule Previous Rx's ?Medication ?Instructions ?Recorded prednisone 20 mg tablet 40 mg (2 x 20 mg) PO DAILY #10 tabs 12/11/22 prednisone 50 mg tablet 50 mg PO DAILY #4 tabs 11/22/24 Allergies Allergy/AdvReac Type Severity Reaction Status Date / Time hydromorphone Allergy Severe Hives Verified 11/22/24 18:28 Review of Systems Review of Systems: Constitutional : No Weight loss, No Fever, No Chills, No Night Sweats, No Fatigue, No Malaise ENT/Mouth : No Hearing loss, No Ear Pain, No Nasal Congestion, No Sinus Pain, No Hoarseness, No sore throat, No Rhinorrhea, No Swallowing Difficulty Eyes: No Eye Pain, No Swelling, No Redness, No Foreign Body, No Discharge, No Vision Changes Cardiovascular : No Chest Pain, No SOB, No Dyspnea on Exertion, No Orthopnea, No Edema, No Palpitations Respiratory : complaining of cough and wheezing after being exposed to a strong odor, No Dyspnea Gastrointestinal : No Nausea, No Vomiting, No Diarrhea, No Constipation, No abdominal Pain, No Hematochezia, No Melena Genitourinary : no irregular bleeding, No Dysuria, No Urinary Frequency, No Hematuria, No Urinary Incontinence, No Urgency, No Flank Pain, No Urinary Flow Changes, No Hesitancy Musculoskeletal : No joint pain, No Myalgias, No Joint Swelling Skin : No Skin Lesions, No rash Neuro : No Weakness, No Numbness, No Paresthesias, No Loss of Consciousness, No Dizziness, No Headache Psych : No Anxiety/Panic, No Depression, No SI/HI/AH/VH, No Social Issues, Heme/Lymph: No Bruising, No Bleeding,No Lymphadenopathy Endocrine : No Polyuria, No Polydipsia, No Temperature Intolerance [facility] Past Medical History Medical History ACL injury tear Dyslipidemia Arthritis Active asthma High cholesterol High blood pressure Surgical History (Updated 06/17/23 @ 15:27 by Violet Adorno) Hx of breast lump removal Social History Social History (System 06/17/23 @ 15:27 by Violet Adorno) Alcohol intake: never Patient Tobacco Use Status: Former Tobacco user Smoked in Last 30 Days: No Use of substances other than those prescribed or required for medical reasons: No Advance Directives: No Advance Directives Information Provided: Yes Do you have a plan to hurt others: No Plan Current occupational status: retired Physical Exam ED Vital Signs: Vital Signs - 24 hr 11/22/24 18:11 11/22/24 18:17 11/22/24 18:42 Temperature 98.3 F 98.3 F Pulse Rate 94 99 80 Respiratory Rate 16 20 16 Blood Pressure 112/50 L 112/50 L 129/76 Pulse Oximetry 94 94 95 Oxygen Delivery Method Room Air Room Air Room Air BMI result Body Mass Index 29.3 Const Other: Appearance: Alert. Oriented X3. No acute distress. Eyes: Pupils equal, round and reactive to light. ENT: Pharynx normal. Neck: Normal inspection. Neck supple. No lymph nodes noted. No crepitus CVS: Normal heart rate and rhythm. Pulses normal. Normal S1 and S2 Respiratory: No respiratory distress. very mild occasional wheezing, good air movement, speaking in full sentences No rales Abdomen: Soft and nontender. No rigidity. No distention. Skin: Skin warm and dry. Normal skin color. Normal skin turgor. Extremities: No lower extremity edema. No Lacerations. No Rash Neuro: Oriented X 3. No motor deficit. No sensory deficit. Moving all extremities. No slurred speech. CN 2 through 12 grossly intact Psych: calm, cooperative, normal affect Medical Decision Making Medical Decision Making MDM Narrative: my interpretation of labs: No significant abnormality in patient's hematology or chemistry since patient arrived to emergency room, overall patient states that she feels much better and now she even feels back to baseline. All of her medications were given by EMS Patient was ambulated around the emergency room, patient steady 94% without asthma exacerbation, chest pain or shortness of breath patient states that she feels back to baseline and is ready to be discharged. patient states that she has enough albuterol and all of her medications at home. A prescription of prednisone was sent to her pharmacy. patient denies any recent runny nose, cough, fever or chills. Patient states that it was a strong odor that triggered her asthma Differential Diagnosis Differential Diagnoses: The differential diagnosis associated with the presentation includes ( Asthma, viral URI) Lab Data MDM Lab Attestation statement: I reviewed the patient's lab results. 11/22/24 19:09 11/22/24 19:09 Labs: Lab Results 11/22/24 Range/Units 19:09 WBC 5.8 (4.8-10.8) X10*3/uL RBC 4.14 L (4.20-5.50) X10*6/uL Hgb 12.5 (12.0-16.0) g/dl Hct 37.5 (37.0-47.0) % MCV 90.6 (80.0-98.0) fL MCH 30.2 (27.0-33.0) pg MCHC 33.3 (31.0-35.0) g/dl RDW 13.2 (11.0-16.0) % Plt Count 207 (160-400) X10*3/uL MPV 9.7 (9.4-12.3) fL Immature Gran % (Auto) 0.5 H (0.0-0.4) % Neut % (Auto) 72.3 (45-73) % Lymph % (Auto) 16.9 L (20-40) % [place] % (Auto) 5.0 (2-11) % Eos % (Auto) 4.8 H (0-4) % Baso % (Auto) 0.5 (0-2) % Lymph # (Auto) 1.0 L (1.2-4.9) X10*3/uL [place] # (Auto) 0.3 (0.1-1.2) X10*3/uL Eos # (Auto) 0.3 (0.0-0.4) X10*3/uL Baso # (Auto) 0.0 (0.0-0.2) X10*3/uL Abs Immat Gran (auto) 0.03 (0.00-0.03) X10*3/uL Absolute Neuts (auto) 4.2 (2.0-8.3) x10*3/uL Absolute Nucleated RBC 0.000 (0.0-0.012) X10*3/uL Nucleated RBC % (auto) 0.0 (0.0-0.2) /100WBC Sodium 142 (135-145) mmol/L Potassium 3.8 (3.3-5.1) mmol/L Chloride 105 (96-108) mmol/L Carbon Dioxide 27 (22-29) mmol/L Anion Gap 14 (12-20) BUN 11 (9-16) mg/dL Creatinine 0.70 (0.5-1.4) mg/dL Estim Creat Clear Calc 70.3 Estimated GFR > 60 Random Glucose 139 H (60-115) mg/dL Calcium 9.3 (8.4-10.2) mg/dL Total Bilirubin 0.3 (0.0-1.0) mg/dL AST 18 (5-31) U/L ALT 10 (0-31) U/L Alkaline Phosphatase 100 (39-117) U/L Total Protein 6.9 (6.5-8.0) g/dL Albumin 3.8 (3.5-5.0) g/dL Discharge Plan Discharge Clinical Impression: Asthma Patient Disposition: Home, Self-Care Instructions: Asthma (ED) Additional Instructions: Please follow-up with your primary care physician tomorrow. If you have any worsening or new symptoms, please return to the emergency room or call 911 Prescriptions: New prednisone 50 mg tablet 50 mg PO DAILY Qty: 4 0RF No Action prednisone 20 mg tablet 40 mg PO DAILY Qty: 10 0RF atorvastatin [Lipitor] 10 mg tablet 10 mg PO DAILY aspirin 81 mg tablet,delayed release (DR/EC) 81 mg PO DAILY Flovent Diskus 50 mcg/actuation blister with device 1 inh inhalation BID loratadine 10 mg capsule 10 mg PO DAILY lisinopril 2.5 mg tablet 2.5 mg PO DAILY cholecalciferol (vitamin D3) 25 mcg (1,000 unit) tablet 25 mcg PO DAILY anastrozole 1 mg tablet 1 mg PO DAILY omega 3-eep-ztz-fish oil 300 mg (120 mg- 180mg)-1,000 mg capsule 1 cap PO calcium carbonate-vitamin D3 600 mg-10 mcg (400 unit) tablet 1 tab PO montelukast 10 mg tablet 10 mg PO QPM lisinopril 10 mg tablet 10 mg PO QAM atorvastatin 80 mg tablet 80 mg PO DAILY bisacodyl 5 mg tablet,delayed release (DR/EC) 5 mg PO DAILY ipratropium-albuterol 0.5 mg-3 mg(2.5 mg base)/3 mL solution for nebulization inhalation Print Language: Libyan
[2024-11-22 19:53] VITALS: O2SAT 94
[2024-11-22 20:00] VITALS: BP 128/71; PULSE 100; RESP 20; TEMP 36.9; O2SAT 95
[2024-11-22 20:17] VITALS: BP 128/71; PULSE 100; RESP 20; TEMP 36.9; O2SAT 95
== END 2024-11-22 20:18 | disposition home or self-care (01) ==
PROVIDERS: Emergency Provider Emergency Medicine; PCP Family Medicine
DX: J45.909 Unspecified asthma, uncomplicated (principal); E78.5 Hyperlipidemia, unspecified; Z87.891 Personal history of nicotine dependence
CPT/HCPCS: 36415; 80053; 85025; 99283; 99284

== ENCOUNTER 2024-12-23 11:40 | Outpatient (REF) | payer OTHER, SELFPAY ==
[2024-12-23 13:34] LABS: Alanine Aminotransferase 12 U/L (0-31); Albumin Level 3.8 g/dL (3.5-5.0); Alkaline Phosphatase 101 U/L (39-117); Aspartate Amino Transferase 29 U/L (5-31); Bilirubin Direct 0.2 mg/dL (0.0-0.5); Bilirubin Total 0.4 mg/dL (0.0-1.0); Cholesterol 168 mg/dL (<200); HDL Cholesterol 45 mg/dL (>40); LDL Cholesterol Calculated 96 mg/dL (<100); Total Protein 6.8 g/dL (6.5-8.0); Triglycerides 139 mg/dL (<150)
[2024-12-23 15:17] LABS: Reflex LDLD? No
== END 2024-12-23 11:41 | disposition home or self-care (01) ==
LOC: HO.HHCL 11:40
PROVIDERS: Visit Provider Family Medicine
DX: E11.9 Type 2 diabetes mellitus without complications (principal); C50.411 Malignant neoplasm of upper-outer quadrant of right female breast; Z17.0 Estrogen receptor positive status [ER+]
CPT/HCPCS: 36415; 80061; 80076

== ENCOUNTER 2025-06-24 08:56 | Outpatient (REF) | payer OTHER, SELFPAY ==
[2025-06-24 13:26] LABS: Appearance Urine Clear; Glucose Urine UA Negative (Negative); PH 5.5 (5.0-9.0); Specific Gravity - Urine 1.020 (1.005-1.025); UMIC TRIGGER UACC YES
[2025-06-24 13:33] LABS: UACC Culture Trigger YES
[2025-06-24 14:16] LABS: Microalbum/Creatinine Ratio Ur 6.3 ug/mg cr (<30)
== END 2025-06-24 08:57 | disposition home or self-care (01) ==
LOC: HO.HHCL 08:56
PROVIDERS: PCP Family Medicine; Visit Provider Family Medicine
DX: R39.15 Urgency of urination (principal); R63.5 Abnormal weight gain
CPT/HCPCS: 36415; 81001; 82043; 82570; 84443; 87086

== ENCOUNTER 2025-06-29 11:29 | Outpatient (REF) | payer OTHER, SELFPAY ==
[2025-06-29 13:21] LABS: Appearance Urine Clear; Glucose Urine UA Negative (Negative); PH 5.5 (5.0-9.0); Specific Gravity - Urine 1.015 (1.005-1.025); UMIC TRIGGER UACC YES
[2025-06-29 13:29] LABS: UACC Culture Trigger YES
--- OUTSIDE RECORDS SUMMARY | 2025-06-29 14:07 | XMS_ITS | Encounter Summary ---
Author Organization [employer] Address [address] [place] [address] Care Team Providers Care Cloth Winder Machine Operator Name Role Phone Monserrat Steve MD Primary Care Provider Juan Pablo Adair PharmD Unavailable Encounter Details Date Type Department Care Team (Late st Contact Info) Description 09/10/2023 Telephone [facility] [address] [place], [place] [phone] Monserrat Steve MD [address] [place], [place] [phone] Social History Tobacco Use Types Packs/Day Years [...] as of this encounter Plan of Treatment Upcoming Encounters Date Type Department Care Team (Late st Contact Info) Description 07/04/2025 10:30 AM EST Immunization [facility] [address] [place] [phone] documented as of this encounter Visit Diagnoses Not on filedocumented in this encounter Additional Health Concerns Assessment Noted Time PHQ-9 Depression Total Score: 0 08/21/20 22 11:00 AM EST documented as of this encounter Care Teams Cloth Winder Machine Operator Relationship Specialty Start Date End Date Monserrat Steve MD [address] [place] [address] PCP - General Family Medicine 08/25/18 Juan Pablo Adair, RowdyD [address] [place] [address] Pharmacist Internal Medicine 06/14/24 11/07/24 documented as of this encounter
--- OUTSIDE RECORDS SUMMARY | 2025-06-29 14:07 | XMS_ITS | Clinical Summary ---
Author Organization [employer] Address [address] [place] [address] Care Team Providers [facility] Name Role Phone Monserrat Steve MD Primary Care Provider [phone] Allergies Active Allergy Reactions Criticality Noted Date Comments Hydromorphone Hives High 01/15/2023 Medications acetaminophen (Tylenol) 500 MG tablet take 2 tablet by oral route every 8 hours as needed Active biotin 5 MG tablet Active cinnamon 500 MG capsule Take 2 capsules (1,000mg) twice daily Active Menthol-Methyl Salicylate (Icy Hot) 10-30 % stick Apply to affected area once daily as needed Active ipratropium-albut homero (Duo-Neb) 0.5-2.5 mg/3 mL nebulizer solutionIndicatio ns:Chronic obstructive pulmonary disease, unspecified COPD type (CMS/HCC) ([facility]) INHALE 1 AMPULE USING A NEBULIZER FOUR TIMES DAILY 90 mL 3 4 Active cholecalciferol (Vitamin D-3) 25 MCG tablet TAKE 1 TABLET BY MOUTH EVERY MORNING 90 tablet 3 4 Active omega-3 (Fish Oil) 1000 MG capsuleIndication s:Hypertriglyceri demia TAKE 1 CAPSULE BY MOUTH TWICE DAILY IN THE MORNING AND IN THE EVENING 180 capsule 3 4 Active Aspirin Low Dose 81 MG EC tablet TAKE 1 TABLET BY MOUTH EVERY MORNING 90 tablet 3 4 Active atorvastatin (Lipitor) 80 MG tablet TAKE 1 TABLET BY MOUTH AT BEDTIME 90 tablet 3 4 Active Multiple Vitamin (multivitamin) tablet Take 1 tablet by mouth Once per day. 30 tablet 11 5 Active montelukast (Singulair) 10 MG tabletIndications :Asthma with COPD (CMS/[facility]) ([facility]) TAKE 1 TABLET BY MOUTH EVERY EVENING 90 tablet 3 5 Active cyanocobalamin (Vitamin B-12) 1000 MCG tablet TAKE 1 TABLET BY MOUTH EVERY MORNING 90 tablet 3 5 Active budesonide-formot hoemro (Symbicort) 80-4.5 MCG/ACT inhalerIndication s:Asthma with COPD (CMS/HCC) ([facility]) Inhale 2 puffs twice daily. May use 1-2 puffs as needed (No more than 12 puffs daily). Rinse mouth after use. 10.2 g 11 5 Active Blood Glucose Monitoring Suppl (FreeStyle Lite) w/Device kitIndications:Di abetes mellitus type 2, diet-controlled ([facility]) 1 kit Once per day. Use to check blood sugar daily 1 kit 5 Active lisinopril 10 MG tabletIndications :Essential hypertension TAKE 1 TABLET BY MOUTH EVERY MORNING 90 tablet 3 5 Active TRUEplus Lancets 33G miscIndications:D iabetes mellitus type 2, diet-controlled ([facility]) TEST BLOOD SUGAR ONCE DAILY DIRECTED 100 each 3 5 Active glucose blood (FREESTYLE LITE) test stripIndications: Diabetes mellitus type 2, diet-controlled ([facility]) TEST BLOOD SUGAR ONCE DAILY DIRECTED 100 strip 3 5 Active loratadine (Claritin) 10 MG tablet TAKE 1 TABLET BY MOUTH EVERY DAY 90 tablet 3 5 Active Active Problems Problem Noted Date Diagnosed Date [...] (07/13/2024 11:26 AM EST): - Referred to [facility] dental 07/13/24 - ER precautions discussed. - Seek medical attention for worsening symptoms. Dental infection 07/13/2024 Assessment & Plan (07/13/2024 11:25 AM EST): - Prescribed amoxicillin (Amoxil) 500 MG capsule 07/13/24 - Referred to [facility] dental 07/13/24 - ER precautions discussed. - [...] supplement Malignant neoplasm of right female breast (CMS/H CC) 08/25/2022 Overview (08/25/2022): infiltrating ductal carcinoma Assessment & Plan (06/24/2025 7:02 PM EDT): -Diagnosed in February 2019. -Followed by [facility], last seen January 2024 -[id number] stage I -ER and AZ positive, Her-2/norbert negative -s/p lumpectomy on 03/31/2019. -s/p radiation Tx in MarchApr 2019 -Last mammo on 04/19/2025 BI-RADS 2 -Completed Zometa for 2yrs, completed 01/04/21. -Continue anastrazole, plan to treat for 5 years. She has been taking > 5 years. Patient was advised to reschedule appointment with oncologist Assessment & Plan (03/15/2025 8:41 AM EDT): -Diagnosed in February 2019. -Followed by [facility], last seen January 2024 -[id number] stage I -ER and AZ positive, Her-2/norbert negative -s/p lumpectomy on 03/31/2019. -s/p radiation Tx in MarchApr 2019 -Last mammo on 01/26/24 BI-RADS 2 -Completed Zometa for 2yrs, completed 01/04/21. -Continue anastrazole, plan to treat for 5 years. Assessment & Plan (12/22/2024 5:45 PM EDT): -Diagnosed in February 2019. -Followed by [facility], last seen January 2024 -[id number] stage I -ER and AZ positive, Her-2/norbert negative -s/p lumpectomy on 03/31/2019. -s/p radiation Tx in MarchApr 2019 -Last mammo on 01/26/24 BI-RADS 2 -Completed Zometa for 2yrs, completed 01/04/21. -Continue anastrazole, plan to treat for 5 years. Assessment & Plan (09/27/2024 9:19 AM EST): -Diagnosed in February 2019. -Followed by [facility], last seen January 2024 -[id number] stage I -ER and AZ positive, Her-2/norbert negative -s/p lumpectomy on 03/31/2019. -s/p radiation Tx in MarchApr 2019 -Last mammo on 01/26/24 BI-RADS 2 -Completed Zometa for 2yrs, completed 01/04/21. -Continue anastrazole, plan to treat for 5 years. Assessment & Plan (04/29/2024 12:03 PM EDT): -Diagnosed in February 2019. -Followed by [facility], last seen Aug 2022 -[id number] stage I -ER and AZ positive, Her-2/norbert negative -s/p lumpectomy on 03/31/2019. -s/p radiation Tx in MarchApr 2019 -Last mammo on 01/26/24 BI-RADS 2 -Completed Zometa for 2yrs, completed 01/04/21. -Continue anastrazole, plan to treat for 5 years. Assessment & Plan (10/21/2023 10:37 AM EST): -Diagnosed in February 2019. -Followed by [facility], last seen Aug 2022 -[id number] stage I -ER and AZ positive, Her-2/norbert negative -s/p lumpectomy on 03/31/2019. -s/p radiation Tx in MarchApr 2019 -Last mammo on 10/08/22 BI-RADS 2 -Completed Zometa for 2yrs, completed 01/04/21. -Continue anastrazole, plan to treat for 5 years. Assessment & Plan (07/11/2023 5:32 AM EST): -Diagnosed in February 2019. -Followed by [facility], last seen Aug 2022 -[id number] stage I -ER and AZ positive, Her-2/norbert negative -s/p lumpectomy on 03/31/2019. -s/p radiation Tx in MarchApr 2019 -Last mammo on 10/08/22 BI-RADS 2 -Completed Zometa for 2yrs, completed 01/04/21. -Continue anastrazole, plan to treat for 5 years. Assessment & Plan (08/25/2022 11:30 AM EST): -Diagnosed in February 2019. -Followed by [facility], last seen in February 2022. -[id number] stage I -ER and AZ positive, Her-2/norbert negative -s/p lumpectomy on 03/31/2019. -s/p radiation Tx in MarchApr 2019 -Last mammo on 03/07/22 BI-RADS 2 -Completed Zometa for 2yrs, completed 01/04/21. -Continue anastrazole, plan to treat for 5 years. Ductal carcinoma in situ (DCIS) of left breast 0 08/25/2022 Assessment & Plan (06/23/2025 6:46 AM EDT): - Dx 2012 - s/p lumpectomy in November 2012 - s/p radiation therapy completed in February 2013 - she developed seroma and cellulitis after radiation treatment. Treated with antibiotic and seroma aspiration in Mar 2013 Assessment & Plan (03/15/2025 8:40 AM EDT): - Dx 2012 - s/p lumpectomy in November 2012 - s/p radiation therapy completed in February 2013 - she developed seroma and cellulitis after radiation treatment. Treated with antibiotic and seroma aspiration in Mar 2013 Assessment & Plan (12/22/2024 5:45 PM EDT): - Dx 2012 - s/p lumpectomy in November 2012 - s/p radiation therapy completed in February 2013 - she developed seroma and cellulitis after radiation treatment. Treated with antibiotic and seroma aspiration in Mar 2013 Assessment & Plan (09/27/2024 9:20 AM EST): -Diagnosed in February 2019. -Followed by [facility], last seen in January 2024. -[id number] stage I -ER and AZ positive, Her-2/norbert negative -s/p lumpectomy on 03/31/2019. -s/p radiation Tx in MarchApr 2019 -Last mammo on 01/26/24 BI-RADS 2 -Completed Zometa for 2yrs, completed 01/04/21. -Continue anastrazole, plan to treat for 5 years. Assessment & Plan (04/29/2024 12:02 PM EDT): -Diagnosed in February 2019. -Followed by [facility], last seen in Aug 2022. -[id number] stage I -ER and AZ positive, Her-2/norbert negative -s/p lumpectomy on 03/31/2019. -s/p radiation Tx in MarchApr 2019 -Last mammo on 01/26/24 BI-RADS 2 -Completed Zometa for 2yrs, completed 01/04/21. -Continue anastrazole, plan to treat for 5 years. Assessment & Plan (10/21/2023 10:37 AM EST): -Diagnosed in February 2019. -Followed by [facility], last seen in Aug 2022. -[id number] stage I -ER and AZ positive, Her-2/norbert negative -s/p lumpectomy on 03/31/2019. -s/p radiation Tx in MarchApr 2019 -Last mammo on 10/08/22 BI-RADS 2 -Completed Zometa for 2yrs, completed 01/04/21. -Continue anastrazole, plan to treat for 5 years. Assessment & Plan (07/11/2023 5:32 AM EST): -Diagnosed in February 2019. -Followed by [facility], last seen in Aug 2022. -[id number] stage I -ER and AZ positive, Her-2/norbert negative -s/p lumpectomy on 03/31/2019. -s/p radiation Tx in MarchApr 2019 -Last mammo on 10/08/22 BI-RADS 2 -Completed Zometa for 2yrs, completed 01/04/21. -Continue anastrazole, plan to treat for 5 years. Assessment & Plan (02/26/2023 11:35 AM EDT): -Diagnosed in February 2019. -Followed by [facility], last seen in February 2022. -[id number] stage I -ER and AZ positive, Her-2/norbert negative -s/p lumpectomy on 03/31/2019. -s/p radiation Tx in MarchApr 2019 -Last mammo on 10/08/22 BI-RADS 2 -Completed Zometa for 2yrs, completed 01/04/21. -Continue anastrazole, plan to treat for 5 years. Assessment & Plan (12/05/2022 1:17 PM EDT): -Diagnosed in February 2019. -Followed by [facility], last seen in February 2022. -[id number] stage I -ER and AZ positive, Her-2/norbert negative -s/p lumpectomy on 03/31/2019. -s/p radiation Tx in MarchApr 2019 -Last mammo on 10/08/22 BI-RADS 2 -Completed Zometa for 2yrs, completed 01/04/21. -Continue anastrazole, plan to treat for 5 years. Assessment & Plan (08/25/2022 11:27 AM EST): -Dx on October 2012 -s/p lumpectomy November 2012 -Last mammo on 03/07/22 BI-RADS 2 -Followed by [facility] breast speciality team. Last seen in February [...] montelukast Essential hypertension 06/22/2015 Assessment & Plan (06/23/2025 6:46 AM EDT): -Goal BP < 130/80 per JNC-8. -BP at goal today -Continue working on lifestyle modifications -Current medications: lisinopril 10 mg daily -Advised to monitor at home and return to the clinic if worsened Assessment & Plan (03/20/2025 4:34 PM EDT): -Goal BP < 130/80 per JNC-8. -BP at goal today -Continue working on lifestyle modifications -Current medications: lisinopril 10 mg daily -Advised to monitor at home and return to the clinic if worsened Assessment & Plan (09/27/2024 9:15 AM EST): [...] Vitamin D deficiency 06/22/2015 Asthma with COPD ([facility]) 08/02/2013 Assessment & Plan (06/24/2025 7:00 PM EDT): -Winter 2018, hospitalized in [facility] for pneumonia -PFT in 2011- [...] at this time. -Non-smoker. Assessment & Plan (03/15/2025 8:41 AM EDT): -Winter 2018, hospitalized in [facility] for pneumonia -PFT in 2011- [...] at this time. -Non-smoker. Assessment & Plan (09/27/2024 9:17 AM EST): -Winter 2018, hospitalized in [facility] for pneumonia -PFT in 2011- [...] 12:00 PM EDT): -Winter 2018, hospitalized in [facility] for pneumonia -PFT in 2011- [...] 10:36 AM EST): -Winter 2018, hospitalized in [facility] for pneumonia -PFT in 2011- [...] 5:16 AM EST): -Winter 2018, hospitalized in [facility] for pneumonia -PFT in 2011- [...] 11:31 AM EDT): -Winter 2018, hospitalized in [facility] for pneumonia -PFT in 2011- [...] 11:34 AM EST): -Winter 2018, hospitalized in [facility] for pneumonia -PFT in 2011- [...] 2 diabetes mellitus 05/21/2012 Assessment & Plan (06/24/2025 7:00 PM EDT): -A1C 6.7% on 06/23/2025, slight increase from 6.4% on 03/15/25 -previously tried metformin ER 500 mg daily -currently diet-controlled -continue working on lifestyle modifications -Last lipid profile: 12/23/2024 TC 168; TG 139; HDL 45; LDL 96 -Last microalbumin test: 06/24/2025 no microalbuminuria -Last foot exam: 09/21/24 -Last comprehensive eye exam: 07/09/22 -IZ up to date Assessment & Plan (03/17/2025 8:39 AM EDT): -A1C 6.4% on 03/15/25, improved from 6.6% on 12/23/2024 -previously tried metformin ER 500 mg daily -currently diet-controlled -continue working on lifestyle modifications -Last lipid profile: 12/23/2024 TC 168; TG 139; HDL 45; LDL 96 -Last microalbumin test: 09/09/2024, UACR 6.8 -Last foot exam: 09/21/24 -Last comprehensive eye exam: 07/09/22 -IZ up to date Assessment & Plan (12/24/2024 2:21 AM EDT): -A1C 6.6% on 12/23/2024, slight increase from 6.3% on 04/29/24 -previously tried metformin ER 500 mg daily -currently diet-controlled -continue working on lifestyle modifications -Last lipid profile: 12/23/2024 TC 168; TG 139; HDL 45; LDL 96 -Last microalbumin test: 09/09/2024, UACR 6.8 -Last foot exam: 09/21/24 -Last comprehensive eye exam: 07/09/22 -IZ up to date Assessment & Plan (09/27/2024 9:20 AM EST): -A1C 6.3% on 04/29/24 -previously tried metformin ER 500 mg daily -currently diet-controlled -continue working on lifestyle modifications -Last lipid profile: 2/27/24 TC 156; TG 75; HDL 46; LDL [...] to date Dyslipidemia 05/21/2012 Assessment & Plan (06/24/2025 7:03 PM EDT): -Current medications: atorvastatin 80 mg qhs; omega-3 -Last lipid profile: 12/23/2024 TC 168; TG 139; HDL 45; LDL 96 -She is prescribed high-intensivy statin therapy per guideline. Patient declined to add ezetimibe. -Continue working on lifestyle modifications Assessment & Plan (03/15/2025 8:40 AM EDT): -Current medications: atorvastatin 80 mg qhs; omega-3 -Last lipid profile: 12/23/2024 TC 168; TG 139; HDL 45; LDL 96 -She is prescribed high-intensivy statin therapy per guideline. -Continue working on lifestyle modifications Assessment & Plan (12/24/2024 2:21 AM EDT): -Current medications: atorvastatin 80 mg qhs; omega-3 -Last lipid profile: 12/23/2024 TC 168; TG 139; HDL 45; LDL 96 -She is prescribed high-intensivy statin therapy per guideline. -Continue working on lifestyle modifications Assessment & Plan (09/27/2024 9:20 AM EST): [...] Encounters Date Type Department Care Team Description 06/29/[address] [facility] [address] [place] [phone] Mnoserrat Steve MD Care Coordination 06/27/2025 Telephone [facility] [place] [address] Valerie Church MA eye notes 06/26/2025 Orders Only [facility] [place] [address] Monserrat Steve MD Urinary urgency (Primary Dx); Hematuria, unspecified type 06/26/2025 Results Follow-Up [address] [place] [address] Monserrat Steve MD POCT glucose manually resulted, POCT glycosylated hemoglobin (Hgb A1c), Urinalysis, Complete, with Reflex to Culture, Additional followed-up results: 2 06/26/2025 Results Follow-Up [facility] [place] [address] Monserrat Steve MD Culture, Urine, Routine 06/23/2025 11:30 AM EDT Office Visit [facility] [address] Monserrat Steve MD Essential hypertension (Primary Dx); Dyslipidemia; Type 2 diabetes mellitus without complication, without long-term current use of insulin (HCC); Ductal carcinoma in situ (DCIS) of left breast; Malignant neoplasm of upper-outer quadrant of right breast in female, estrogen receptor positive (CMS/HCC) (HCC); Urinary urgency; Weight gain; Asthma with COPD (CMS/HCC) (HCC) 06/23/2025 Travel 06/22/2025 Telephone [facility] [place] [address] Monserrat Steve MD chart prep 06/15/2025 Patient Outreach [facility] [place] [address] Monserrat Steve MD Pre-visit Planning (SDOH screening was completed on 12/23/2024) 05/13/2025 Abstract [facility] [place] [address] Valerie Church MA 04/28/[address] [place] [address] Monserrat Steve MD may04/21/[address] [facility] [address] [place] [address] Monserrat Steve MD 04/03/[address] [facility] [address] [place] [address] Monserrat Steve MD Diabetes mellitus type 2, diet-controlled ([facility]) from Last 3 Months Immunizations Immunization Administration Dates Next Due Hep B, adult 04/26/2014,08/02/2013,01/08/2013 Influenza High-dose Quadriva lent Preservative Free 07/10/2023,05/30/2021,07/17/2020 Influenza injectable quadriv alent IIV4 with preservative 05/26/2017,05/13/2016,05/23/2015 Influenza injectable quadriv alent preservative free 08/06/2018 Influenza, High Dose Seasona l, Preservative Free 06/07/2025,10/25/2019 Influenza, IIV3, injectable 06/01/2009,1 ,05/11/2007,07/21,08/09/2004 Influenza, Split (incl. ismael fied surface antigen) 08/02/2013,05/28/2012 PPD Test 10/18/2022 [employer] Covid-19 Vaccine 12+ 12/01/2020, 1 Pneumococcal Conjugate PCV 13 11/22/2014 Pneumococcal Polysaccharide [...] housing situation today? I have jacqueline barrett 12/23/[address] you li ve. Do you have problems with any of the following? None of the above 12/23/2024 Food Insecurity Answer Date Recorded Within the past 12 months, y ou worried that your food would run out before you got money to buy more: Never True 12/23/2024 Within the past 12 months,th e food you bought just didn't last and you didn't have enough money to get more: Never True 08/2024 Transportation Answer Date Recorded In the past 12 months, has l ack of transportation kept you from medical appts, meetings, work or from getting things needed for daily living? No 12/23/2024 Utilities Answer Date Recorded In the past 12 months, has t he electric, gas, oil or water company threatened to shut off services in your home? No 12/23/2024 Depression Answer Date Recorded Patient Health Questionnaire-2 [...] Sign Reading Time Taken Comments Blood Pressure 124/70 06/23/2025 12:00 PM EDT Pulse 96 06/23/2025 12:00 PM EDT Temperature 36 C (96.8 F) 06/23/2025 12:00 PM EDT Respiratory Rate 16 06/23/2025 12:00 PM EDT Oxygen Saturation 100% 12/23/2024 11:05 AM EDT Inhaled Oxygen Concentration - - Weight 77.1 kg (170 lb) 06/23/2025 12:00 PM EDT Height 154.9 cm (5' 1 ) 06/23/2025 12:00 PM EDT Body Mass Index 32.12 06/23/2025 12:00 PM EDT Plan of Treatment Upcoming Encounters Date Type Department Care Team (Late st Contact Info) Description 07/04/2025 10:30 AM EST Immunization [facility] [address] [place] [address] Health Maintenance Due Date Last Done Comments Dental Oral Exam 1945 Dental Prophylaxis 1945 Dental X-Ray: Bitewings 1947 Dental X-Ray: Full Mouth 1947 Eye Exam 1957 Zoster Vaccines (2 of 3) 01/17/2015 11/22/2014 RSV Patients and Patients Aged 60 years or older (1 - 1-dose 75+ series) 2022 COVID-19 Vaccine ( - season) 2025 12/01/2020, 11/10/2020 Alcohol/Substance Use Screening 09/21/2025 09/21/2024 Depression Screening 09/21/2025 09/21/2024, 09/21/19 25 Diabetes: Foot Exam 09/21/2025 09/21/2024, 07/10/2023, 07/10/2023, Additional history exists Diabetes: Hemoglobin A1C 12/22/2025 025, 03/15/2025, 12/23/2024, Additional history exists Lipid Panel 12/23/2025 12/23/2024, 08/25, 10/21/2023, Additional history exists SDOH Screening 12/23/2025 12/23/2024 Mammogram 04/09/2026 04/09/2025, 09/25, 10/08/2022 Diabetes: Urine Protein Screening 06/24/2026 06/24/2025, 09/09/2024, 10/21/2023, Additional history exists Tobacco Screening 06/24/2026 06/24/2025 DTaP/Tdap/Td Vaccines (3 - Td or Tdap) 02/26/2033 02/26/2023, 09/06/2011, 01/04/2008 Hepatitis B Vaccines Completed 04/26/2014, 08/02/2013, 01/08/2013 Pneumococcal Vaccine: 50+ Years Completed 11/22/2014, 04/26/2014, 07/06/2007 Hepatitis C Screening Completed 10/27/2019 Influenza Vaccine Completed 06/07/2025, , 05/30/2021, Additional history exists HIB Vaccines Aged Out No longer eligi [...] age to complete this topic Meningococcal B Vaccine Aged Out No l onger eligible based on patient's age to complete [...] Procedure Name Priority Date/Time Associated Diagnosis Comments URINALYSIS, COMPLETE, WITH REFLEX TO CULTURE Routine 06/29/2025 11:35 AM EST Urinary urgency Hematuria, unspecified type ALBUMIN, RANDOM URINE W/CREATININE Routine 06/24/2025 11:36 AM EDT Urinary urgency URINALYSIS, COMPLETE, WITH REFLEX TO CULTURE Routine 06/24/2025 11:36 AM EDT Urinary urgency TSH W/REFLEX TO FT4 Routine 06/24/2025 9 :01 AM EDT Weight gain CULTURE, URINE, ROUTINE Routine 06/24/2025 12:00 AM EDT Asthma with COPD (CMS/HCC) (HCC) POCT GLUCOSE Routine 06/23/2025 12:06 PM EDT Type 2 diabetes mellitus without complication, without long-term current use of insulin (HCC) POCT GLYCOSYLATED HEMOGLOBIN (HGB A1C) Routine 06/23/2025 12:05 PM EDT Type 2 diabetes mellitus without complication, without long-term current use of insulin ([facility]) HM MAMMOGRAPHY Routine 04/09/2025 5:00 PM EDT LIPID PANEL WITH REFLEX TO DIRECT LDL Routine 12/23/2024 11:42 AM EDT Malignant neoplasm of upper-outer quadrant of right breast in female, estrogen receptor positive (CMS/HCC) Type 2 diabetes mellitus without complication, without long-term current use of insulin (CMS/HCC) ZZZ HISTORICAL HEPATITIS C ANTIBODY RFLX Routine 10/27/2019 11:55 AM EST from Last 3 Months or Most Recently Relevant to Health Maintenance Results * (ABNORMAL) Urinalysis, Complete, with Reflex to Culture (06/29/2025 11:35 AM EST) Only the most recent of2 resultswithin the time period is included. Color Urine Yellow [facility] Appearance Urine Clear [facility] PH 5.5 5.0 - 9.0 [facility] Glucose Urine UA Negative Negative mg/dL [facility] Urine Blood Negative Negative [facility] Specific [place] - Urine 1.015 1.005 - 1.025 [facility] Urine Protein Negative Neg-Trace mg/dL [facility] Urine Ketones Negative Negative mg/dL [facility] Nitrite Urine Negative Negative [facility] Leukocyte Esterase Urine Small (1+)(A) Negative [facility] RBC Urine 0-2 0 - 2 /HPF [facility] Urine WBC 6-10(A) 0 - 5 /HPF [facility] Urine Squamous Epithelial Cell 11-20 0 - 2 /HPF [facility] Urine Bacteria 2+ None Seen [facility] Hyaline Casts, Urine 0-2 0 - 2 /LPF [facility] Urine 06/29/2025 11:3 5 AM EST 06/29/2025 1:05 PM EST Narrative [facility] - 06/29/2025 1:30 PM EST Urine, Clean Catch us Monserrat Steve MD LAB URINE ORDERABLES Final Resul t [facility] [address] [place] [address] [phone] * Albumin, Random Urine W/Creatinine (06/24/2025 11:36 AM EDT) Creatinine, Urine 157.65 mg/dL [facility] Microalbumin Urine 10.0 mg/L [facility] Microalbum Creatinine Ratio Ur 6.3 <30 ug/mg cr [facility] Comment:Albumin/Creatinine R atio Reference Ranges: Normal: < 30 ug/mg creatinine Microalbuminuria: 30 - 300 ug/mg creatinineClinical Albuminuria: > 300 ug/mg creatinine Urine 06/24/2025 11:3 6 AM EDT 06/24/2025 1:10 PM EDT us Monserrat Steve MD LAB URINE ORDERABLES Final Resul t Performing Organization Address City/[facility]/ZIP Co de Phone Number [facility] [address] [place] [phone] * TSH with Reflex to Free T4 (06/24/2025 9:01 AM EDT) TSH reflex Free T4 2.75 0.32 - 4.0 uIU/mL [facility] Blood 06/24/2025 9:01 AM EDT 06/24/2025 11:22 AM EDT Monserrat Steve MD LAB BLOOD ORDERABLES Final Resul t [facility] [address] [place], [place] [phone] * Culture, Urine, Routine (06/24/2025 12:00 AM EDT) Urine Urine specimen obtained by clean catch procedure / Unknown 06/24/2025 06/24/2025 Comment:UACC Narrative [facility] - 06/25/2025 12:36 PM EDT Urine Culture Report Result Urine Culture < 10,000 cfu/ml Specimen Source: Urine clean catch Monserrat Steve MD LAB MICROBIOLOGY - GENERAL ORDER MODE Final Result [facility] [address] [place] [address] [phone] * POCT glucose manually resulted (06/23/2025 12:06 PM EDT) Glucose Blood, POC 113 60 - 200 mg/dL QC Media Lot # [id number] Lot# Expiration Date Blood Capillary blood specimen / Unknown 06/23/2025 12:06 PM EDT Monserrat Steve MD POINT OF CARE TEST ENTER/EDIT OR DERABLES Final Result * (ABNORMAL) POCT glycosylated hemoglobin (Hgb A1c) (06/23/2025 12:05 PM EDT) Hemoglobin A1C 6.7(A) 4.0 - 5.7 % QC Media Lot # [id number] Lot# Expiration Date Blood Capillary blood specimen / Unknown 06/23/2025 12:05 PM EDT Monserrat Steve MD POINT OF CARE TEST ENTER/EDIT OR DERABLES Final Result * Mammography (04/09/2025 5:00 PM EDT) HM Mammogram BIRADS 2 Normal, Abnormal, BIRADS 1 , BIRADS 2 Anatomical Region Laterality Modality Other Obi Fields MD HEALTH MAINTENANCE Final Result * Lipid Panel with Reflex to Direct LDL (12/23/2024 11:42 AM EDT) Triglycerides 139 <150 mg/dL [facility] Comment:Desirable Triglyceri de: less than 150 mg/dLBorderline High Triglyceride 150-199 mg/dLHigh Triglyceride: 200-499 mg/dLVery High Triglyceride: greater than or equal to 5OO mg/dL Cholesterol 168 <200 mg/dL [facility] Comment:Desirable Cholestero l: less than 200 mg/dLBorderline High Cholesterol: 200-239 mg/dLHigh Cholesterol: greater than 239 mg/dL LDL Cholesterol Calculated 96 <100 mg/dL [facility] Comment:Desirable LDL: less than 100 mg/dLNear Optimal/Above Optimal LDL: 110- 129 mg/dLBorderline High LDL: 130-159 mg/dLHigh LDL: 160-189 mg/dLVery High LDL: greater than or equal to 190 mg/dL HDL Cholesterol 45 >40 mg/dL [facility] Comment:Desirable HDL: great er than 40 mg/dL Note: This HDL assay may give artificially low results in patients with liver disease. Blood 12/23/2024 11:4 2 AM EDT 12/23/2024 1:05 PM EDT Monserrat Steve MD LAB BLOOD ORDERABLES Final Resul t Performing Organization Address [facility]/ZIP Co de Phone Number [facility] [address] [place] [address] [phone] * HEPATITIS C ANTIBODY RFLX (10/27/2019 11:55 AM EST) [facility] HEPATITIS C ANTIBODY NONREACTIVE NONREACTIVE [facility] Comment: Antibodies to HCV not detected; does not exclude early acute HCV infection. 10/27/2019 11:5 5 AM EST Monserrat Steve MD HISTORICAL/NON ORDERABLE LABS Fi nal Result Performing Organization Address City/[facility] Co de Phone Number [facility] [address] from Last 3 Months or Most Recently Relevant to Health Maintenance Insurance [employer] (O D-SNP) [facility] Care Teams Hospital Cook Relationship Specialty Start Date End Date Monserrat Steve MD [address] [place] [phone] PCP - General Family Medicine 08/25/18
--- OUTSIDE RECORDS SUMMARY | 2025-06-29 14:07 | XMS_ITS | Encounter Summary ---
Author Organization [employer] Address [address] [facility] 7t [place] [address] Care Team Providers Care Automotive Electrician Helper Name Role Phone Monserrat Steve MD Primary Care Provider [phone] Juan Pablo Adair PharmD Unavailable [phone] Reason for Visit * Reason Comments Med Refill Encounter Details Date Type Department Care Team ([facility] st Contact Info) Description 11/12/2023 Refill [facility] [address] [place], [place] [phone] Monserrat Steve MD [address] [place], [place] [phone] Vitamin D deficiency Social History Tobacco Use [...] t he electric, gas, oil or water Sentiment threatened to shut off services in your [...] Info) Description 07/04/2025 10:30 AM EST Immunization [facility] [address] [place] [address] documented as of this encounter Visit Diagnoses Diagnosis Vitamin D deficiency documented in this encounter Additional Health Concerns Assessment Noted Time PHQ-9 Depression Total Score: 0 08/21/20 22 11:00 AM EST documented as of this encounter Care Teams Automotive Electrician Helper Relationship Specialty Start Date End Date Monserrat Steve MD [address] [place] [address] PCP - General Family Medicine 08/25/18 Juan Pablo Adair, RowdyD [address] [place] [address] Pharmacist Internal Medicine 06/14/24 11/07/24 documented as of this encounter
--- OUTSIDE RECORDS SUMMARY | 2025-06-29 14:07 | XMS_ITS | Encounter Summary ---
Author Organization [facility] Address 75 [facility] 7[address] [place] [address] Care Team Providers Care Head Of Housekeeping Name Role Phone Monserrat Steve MD Primary Care Provider [phone] Juan Pablo Adair PharmD Unavailable [phone] Encounter Details Date Type Department Care Team (Late st Contact Info) Description 01/22/2023 Abstract [employer] [facility] [address] [place] [address] Monserrat Steve MD [address] [place], [place] [phone] Social History Tobacco Use Types Packs/Day Years [...] Info) Description 07/04/2025 10:30 AM EST Immunization [facility] [address] [place], [place] [phone] documented as of this encounter Visit Diagnoses Not on filedocumented in this encounter Additional Health Concerns Assessment Noted Time PHQ-9 Depression Total Score: 0 08/21/20 11:00 AM EST documented as of this encounter Care Teams Head Of Housekeeping Relationship Specialty Start Date End Date Monserrat Steve MD [address] [place] [address] PCP - General Family Medicine 08/25/18 Juan Pablo Adair, RowdyD [address] [place] [address] Pharmacist Internal Medicine 06/14/24 11/07/24 documented as of this encounter
--- OUTSIDE RECORDS SUMMARY | 2025-06-29 14:07 | XMS_ITS | Encounter Summary ---
Author Organization [employer] [facility] Address 75 [facility] 7t [place] [address] Care Team Providers Care Clean Up Helper Banquet Name Role Phone Monserrat Steve MD Primary Care Provider [phone] Juan Pablo Adair PharmD Unavailable [phone] Encounter Details Date Type Department Care Team (Late Contact Info) Description 12/10/2022 Orders Only [facility] [address] [place] [address] [phone] Monserrat Steve MD [address] [place] [address] [phone] Helicobacter pylori gastritis (Primary Dx) Social History [...] Info) Description 07/04/2025 10:30 AM EST Immunization [facility] [address] [place] [address] [phone] documented as of this encounter Visit Diagnoses Diagnosis Helicobacter pylori gastritis- Primary documented in this encounter Additional Health Concerns Assessment Noted Time PHQ-9 Depression Total Score: 0 08/21/20 22 11:00 AM EST documented as of this encounter Care Teams Clean Up Helper Banquet Relationship Specialty Start Date End Date Monserrat Steve MD [address] [place] [address] PCP - General Family Medicine 08/25/18 Juan Pablo Adair, RowdyD [address] [place] [address] Pharmacist Internal Medicine 06/14/24 11/07/24 documented as of this encounter
--- OUTSIDE RECORDS SUMMARY | 2025-06-29 14:07 | XMS_ITS | Encounter Summary ---
Author Organization [employer] [facility] Address 75 [facility] 7t [place] [address] Care Team Providers Care Pediatric Medical Assistant Name Role Phone Monserrat Steve MD Primary Care Provider [phone] Juan Pablo Adair PharmD Unavailable [phone] Encounter Details Date Type Department Care Team (Late st Contact Info) Description 08/15/2022 Orders Only [facility] [address] [place] [address] Yu Meza LPN Social History Tobacco Use [...] Info) Description 07/04/2025 10:30 AM EST Immunization [facility] [address] [place] [address] documented as of this encounter Visit Diagnoses Not on filedocumented in this encounter Care Teams Pediatric Medical Assistant Relationship Specialty Start Date End Date Monserart Steve MD [address] [place] [address] PCP - General Family Medicine 08/25/18 Juan Pablo Adair, PharmD [address] [place] [address] Pharmacist Internal Medicine 06/14/24 11/07/24 documented as of this encounter
--- OUTSIDE RECORDS SUMMARY | 2025-06-29 14:07 | XMS_ITS | Encounter Summary ---
Author Organization [employer] Address 75 [facility] 7t [place] [address] Care Team Providers Care Furnace Utility Operator Name Role Phone Monserrat Steve MD Primary Care Provider [phone] Reason for Visit * Reason Onset Date Comments Results 06/26/2025 Encounter Details Date Type Department Care Team (Latest Contact Info) Description 06/26/2025 Results Follow-Up [facility] [address] [place], [place] [phone] Monserrat Steve MD [address] [place], [place] [phone] POCT glucose manually resulted, POCT glycosylated hemoglobin (Hgb A1c), Urinalysis, Complete, with Reflex to Culture, Additional followed-up results: 2 Social History Tobacco Use Types Packs/Day Years [...] encounter Miscellaneous Notes * Telephone Encounter - Yvette Baumann RN - 06/28/2025 9:23 AM EST TC placed to the pt with BLS lending consultant #[id number] to inform of the message below regarding the pt most recent UA indicating trace blood. The pt was requested to repeat the test again and if any blood is still noted then PCP will order an US to check for a kidney stone and possibly refer to a urologist. The pt was agreeable to this POC and stated understanding. ----- Message from Monserrat Steve MD sent at 06/26/2025 11:07 AM EST ----- Please disregard previous message attached with urine culture. Trace blood. Please ask her to repeat again. If still positive for blood, will order US for check kidney stone and refer to urologist to evaluate for hematuria. Thank you. ----- Message ----- From: Valerie Church [place] Sent: 06/23/2025 12:06 PM EST To: Monserrat Steve MD * Telephone Encounter - Raquel House RN - 06/27/2025 11:20 AM EST Telephone call x1 to pt to advise of below result. No answer, left voicemail to call back. Will task to call again. * Telephone Encounter - Raquel House RN - 06/27/2025 11:19 AM EST ----- Message from Monserrat Steve MD sent at 06/26/2025 11:07 AM EST ----- Please disregard previous message attached with urine culture. Trace blood. Please ask her to repeat again. If still positive for blood, will order US for check kidney stone and refer to urologist to evaluate for hematuria. Thank you. ----- Message ----- From: Valerie Church [place] Sent: 06/23/2025 12:06 PM EST To: Monserrat Steve MD documented in this encounter Plan of Treatment Upcoming Encounters Date Type Department Care Team (Late st Contact Info) Description 07/04/2025 10:30 AM EST Immunization [facility] [address] [place] [address] documented as of this encounter Visit Diagnoses Not on filedocumented in this encounter Additional Health Concerns Assessment Noted Time PHQ-9 Depression Total Score: 3 09/21/19 25 1:31 PM EST documented as of this encounter Care Teams Furnace Utility Operator Relationship Specialty Start Date End Date Monserrat Steve MD [address] [place] [address] PCP - General Family Medicine 08/25/18 documented as of this encounter
--- OUTSIDE RECORDS SUMMARY | 2025-06-29 14:07 | XMS_ITS | Encounter Summary ---
Author Organization [employer] Address 75 [facility] 7t [place] [address] Care Team Providers Care Hat Cleaner Name Role Phone Monserrat Steve MD Primary Care Provider [phone] Juan Pablo Adair PharmD Unavailable [phone] Reason for Visit * Reason Onset Date Comments Appointment Request 05/24/2024 Encounter Details Date Type Department Care Team ([facility] st Contact Info) Description 05/24/2024 Telephone [facility] [address] [place], [place] [phone] Monserrat Steve MD [address] [place], [place] [phone] Appointment Request Social History Tobacco Use Types [...] Info) Description 07/04/2025 10:30 AM EST Immunization [facility] [address] [place] [address] documented as of this encounter Visit Diagnoses Not on filedocumented in this encounter Additional Health Concerns Assessment Noted Time PHQ-9 Depression Total Score: 0 08/21/20 22 11:00 AM EST documented as of this encounter Care Teams Hat Cleaner Relationship Specialty Start Date End Date Monserrat Steve MD [address] [place] [address] PCP - General Family Medicine 08/25/18 Juan Pablo Adair, [place] [address] [place] [address] Pharmacist Internal Medicine 06/14/24 11/07/24 documented as of this encounter
--- OUTSIDE RECORDS SUMMARY | 2025-06-29 14:07 | XMS_ITS | Encounter Summary ---
Author Organization [employer] [facility] Address 75 [facility] 7t [place] [address] Care Team Providers Care Media Intern Name Role Phone Monserrat Steve MD Primary Care Provider [phone] Juan Pablo Adair PharmD Unavailable [phone] Encounter Details Date Type Department Care Team (Late st Contact Info) Description 09/06/2022 Telephone [facility] [address] [place] [address] [phone] Monserrat Steve MD [address] [place] [address] [phone] Social History Tobacco Use Types Packs/Day Years [...] Info) Description 07/04/2025 10:30 AM EST Immunization [facility] [address] [place] [address] [phone] documented as of this encounter Visit Diagnoses Not on filedocumented in this encounter Additional Health Concerns Assessment Noted Time PHQ-9 Depression Total Score: 0 08/21/20 22 11:00 AM EST documented as of this encounter Care Teams Media Intern Relationship Specialty Start Date End Date Monserrat Steve MD [address] [place] [address] PCP - General Family Medicine 08/25/18 Juan Pablo Adair, [place] [address] [place] [address] Pharmacist Internal Medicine 06/14/24 11/07/24 documented as of this encounter
--- OUTSIDE RECORDS SUMMARY | 2025-06-29 14:07 | XMS_ITS | Encounter Summary ---
Author Organization [employer] Address [address] [facility] 7t [place] [address] Care Team Providers Care Physical Therapy Nurse Name Role Phone Monserrat Steve MD Primary Care Provider [phone] Reason for Visit * Reason Onset Date Comments eye notes 06/27/2025 Encounter Details Date Type Department Care Team (Late st Contact Info) Description 06/27/2025 Telephone [facility] [address] [place], [place] [phone] Valerie Church [place] eye notes Social History Tobacco Use Types Packs/Day Years [...] your housing situation today? I have jacqueline arnold 12/23/[address] you li [...] encounter Miscellaneous Notes * Telephone Encounter - Valerie Church MA - 06/27/2025 9:32 AM EST Vincent requested last eye notes from [facility] documented in this encounter Plan of Treatment Upcoming Encounters Date Type Department Care Team (Late st Contact Info) Description 07/04/2025 10:30 AM EST Immunization [facility] [address] [place] [address] documented as of this encounter Visit Diagnoses Not on filedocumented in this encounter Additional Health Concerns Assessment Noted Time PHQ-9 Depression Total Score: 3 09/21/19 25 1:31 PM EST documented as of this encounter Care Teams Physical Therapy Nurse Relationship Specialty Start Date End Date Monserrat Steve MD [address] [place] [address] PCP - General Family Medicine 08/25/18 documented as of this encounter
--- OUTSIDE RECORDS SUMMARY | 2025-06-29 14:07 | XMS_ITS | Encounter Summary ---
Author Organization [employer] Address 75 [facility] 7t [place] [address] Care Team Providers Care Lettuce Cutter Name Role Phone Monserrat Steve MD Primary Care Provider [phone] Reason for Visit * Reason Onset Date Comments Care Coordination 06/29/2025 Encounter Details Date Type Department Care Team (Late st Contact Info) Description 06/29/2025 Telephone [facility] [address] [place], [place] [phone] Monserrat Steve MD [address] [place], [place] [phone] Care Coordination Social History Tobacco Use Types Packs/Day Years [...] encounter Miscellaneous Notes * Telephone Encounter - Raquel House RN - 06/29/2025 11:49 AM EST Called [facility], spoke with Claudia. Asked for message to be sent to pt's care aid to help pt reschedule oncology appointment for breast cancer. Asked for call back either way. cattle broker's name is Claudia Vilchis. * Telephone Encounter - Raquel House RN - 06/29/2025 11:47 AM EST ----- Message from Monserrat Steve MD sent at 06/24/2025 7:06 PM EDT ----- Please ask her care aid to assist her reschedule appointment with oncologist for breast cancer.She missed her last follow up appointment in January 2025. Thank you. documented in this encounter Plan of Treatment Upcoming Encounters Date Type Department Care Team ([facility] st Contact Info) Description 07/04/2025 10:30 AM EST Immunization [facility] [address] [place] [address] documented as of this encounter Visit Diagnoses Not on filedocumented in this encounter Additional Health Concerns Assessment Noted Time PHQ-9 Depression Total Score: 3 09/21/19 25 1:31 PM EST documented as of this encounter Care Teams Lettuce Cutter Relationship Specialty Start Date End Date Monserrat Steve MD [address] [place] [address] PCP - General Family Medicine 08/25/18 documented as of this encounter
--- OUTSIDE RECORDS SUMMARY | 2025-06-29 14:07 | XMS_ITS | Encounter Summary ---
Author Organization [facility] Address 75 [facility] 7t [place] [address] Care Team Providers Care Forge Tender Name Role Phone Monserrat Steve MD Primary Care Provider [phone] Reason for Referral * Imaging (Routine) - Authorized Specialty Diagnoses / Procedures Referred By Shikha t Referred To Contact Radiology Diagnoses Urinary urgency Hematuria, unspecified type Procedures US BLADDER Monserrat Steve MD [address] [place] [address] Phone: tel: fax: [address] Phone: tel: fax: Referral ID Status Reason Start Date Expiration Date V isits Requested Visits Authorized [id number] Authorized 06/26/2025 06/26/2026 1 1 * Imaging (Routine) - Authorized Specialty Diagnoses / Procedures Referred By Contac t Referred To Contact Radiology Diagnoses Urinary urgency Hematuria, unspecified type Procedures US RENAL BI Monserrat Steve MD [address] [place] [address] Phone: tel: fax: [address] Phone: tel: fax: Referral ID Status Reason Start Date Expiration Date V isits Requested Visits Authorized [id number] Authorized 06/26/2025 06/26/2026 1 1 Encounter Details Date Type Department Care Team (Late st Contact Info) Description 06/26/2025 Orders Only [facility]INE [address] [place], [place] [phone] Monserrat Steve MD [address] [place] [address] Urinary urgency (Primary Dx); Hematuria, unspecified type Social History Tobacco Use Types Packs/Day Years [...] Info) Description 07/04/2025 10:30 AM EST Immunization [facility]INE [address] [place] [address] Scheduled Orders Name Type Priority Associated Diagnoses Orde r Schedule US RENAL BI Imaging Routine Urinary urgency Hematuria, unspecified type Expected: 06/26/2025, Expires: 06/26/2026 US BLADDER Imaging Routine Urinary urgency Hematuria, unspecified type Expected: 06/26/2025, Expires: 06/26/2026 documented as of this encounter Procedures Procedure Name Priority Date/Time Associated Diagnosis Comments URINALYSIS, COMPLETE, WITH REFLEX TO CULTURE Routine 06/29/2025 11:35 AM EST Urinary urgency Hematuria, unspecified type documented in this encounter Results * (ABNORMAL) Urinalysis, Complete, with Reflex to Culture (06/29/2025 11:35 AM EST) Color Urine Yellow [facility] Appearance Urine Clear [facility] PH 5.5 5.0 - 9.0 [facility] Glucose Urine UA Negative Negative mg/dL [facility] Urine Blood Negative Negative [facility] Specific [place] - Urine 1.015 1.005 - 1.025 [facility] Urine Protein Negative Neg-Trace mg/dL [facility] Urine Ketones Negative Negative mg/dL [facility] Nitrite Urine Negative Negative [facility] Leukocyte Esterase Urine Small (1+)(A) Negative [facility] RBC Urine 0-2 0 - 2 /HPF [facility] Urine WBC 6-10(A) 0 - 5 /HPF [facility] Urine Squamous Epithelial Cell 11-20 0 - 2 /HPF [facility] Urine Bacteria 2+ None Seen [facility] Hyaline Casts, Urine 0-2 0 - 2 /LPF [facility] Urine 06/29/2025 11:3 5 AM EST 06/29/2025 1:05 PM EST Narrative [facility] - 06/29/2025 1:30 PM EST Urine, Clean Catch Monserrat Steve MD LAB URINE ORDERABLES Final Resul t [facility] [address] [place] [address] [phone] documented in this encounter Visit Diagnoses Diagnosis Urinary urgency- Primary Urgency of urination Hematuria, unspecified type documented in this encounter Additional Health Concerns Assessment Noted Time PHQ-9 Depression Total Score: 3 09/21/19 25 1:31 PM EST documented as of this encounter Care Teams Forge Tender Relationship Specialty Start Date End Date Monserrat Steve MD [address] [place] [address] PCP - General Family Medicine 08/25/18 documented as of this encounter
--- OUTSIDE RECORDS SUMMARY | 2025-06-29 14:07 | XMS_ITS | Encounter Summary ---
Author Organization [employer] Address [address] [facility] 7t [place] [address] Care Team Providers Care Pad Machine Offbearer Name Role Phone Monserrat Steve MD Primary Care Provider [phone] Juan Pablo Adair PharmD Unavailable [phone] Reason for Visit * Reason Comments Med Refill Encounter Details Date Type Department Care Team ([facility] Contact Info) Description 10/21/2024 Refill [facility]INE [address] [place], [place] [phone] Monserrat Steve MD [address] [place], [place] [phone] Social History Tobacco Use Types Packs/Day Years [...] Info) Description 07/04/2025 10:30 AM EST Immunization [facility] [address] [place] [address] documented as of this encounter Visit Diagnoses Not on filedocumented in this encounter Additional Health Concerns Assessment Noted Time PHQ-9 Depression Total Score: 3 09/21/19 25 1:31 PM EST documented as of this encounter Care Teams Pad Machine Offbearer Relationship Specialty Start Date End Date Monserrat Steve MD [address] [place] [address] PCP - General Family Medicine 08/25/18 Juan Pablo Adair, RowdyD [address] [place] [phone] Pharmacist Internal Medicine 06/14/24 11/07/24 documented as of this encounter
--- OUTSIDE RECORDS SUMMARY | 2025-06-29 14:07 | XMS_ITS | Encounter Summary ---
Author Organization [employer] Address [address] [facility] [address] [place] [address] Care Team Providers Care Product Trainer Name Role Phone Monserrat Steve MD Primary Care Provider [phone] Encounter Details Date Type Department Care Team ([facility] st Contact Info) Description 06/26/2025 Results Follow-Up [facility] [address] [place], [place] [phone] Monserrat Stvee MD [address] [place], [place] [phone] Culture, Urine, Routine Social History Tobacco Use Types Packs/Day Years [...] Info) Description 07/04/2025 10:30 AM EST Immunization [facility] [address] [place] [address] documented as of this encounter Visit Diagnoses Not on filedocumented in this encounter Additional Health Concerns Assessment Noted Time PHQ-9 Depression Total Score: 3 09/21/19 25 1:31 PM EST documented as of this encounter Care Teams Product Trainer Relationship Specialty Start Date End Date Monserrat Steve MD [address] [place] [id number] PCP - General Family Medicine 08/25/18 documented as of this encounter
--- OUTSIDE RECORDS SUMMARY | 2025-06-29 14:07 | XMS_ITS | Encounter Summary ---
Author Organization [employer] Address [address] [facility] [address] [place] [address] Care Team Providers Care Web Feeder Name Role Phone Monserrat Steve MD Primary Care Provider [phone] Juan Pablo Adair PharmD Unavailable [phone] Reason for Visit * Reason Onset Date Comments new script 09/17/2022 Encounter Details Date Type Department Care Team ([facility] st Contact Info) Description 09/17/2022 Telephone [facility] [address] [place], [place] [phone] Monserrat Steve MD [address] [place], [place] [phone] new script Social History Tobacco Use Types [...] recert form * Telephone Encounter - Benoit Laraos - 09/17/2022 12:40 PM EST Tc from pt requesting new script for ensure milk ( strawberry ) ( vanilla ) pt states will like to be send to [facility] documented in this encounter Plan of Treatment Upcoming Encounters Date Type Department Care Team (Late st Contact Info) Description 07/04/2025 10:30 AM EST Immunization [facility] [address] [place] [address] documented as of this encounter Visit Diagnoses Not on filedocumented in this encounter Additional Health Concerns Assessment Noted Time PHQ-9 Depression Total Score: 0 08/21/20 22 11:00 AM EST documented as of this encounter Care Teams Web Feeder Relationship Specialty Start Date End Date Monserrat Steve MD [address] [place] [id number] PCP - General Family Medicine 08/25/18 Juan Pablo Adair, [place] [address] [place] [phone] Pharmacist Internal Medicine 06/14/24 11/07/24 documented as of this encounter
== END 2025-06-29 11:30 | disposition home or self-care (01) ==
LOC: HO.HHCL 11:29
PROVIDERS: PCP Family Medicine; Visit Provider Family Medicine
DX: R39.15 Urgency of urination (principal); R31.9 Hematuria, unspecified
CPT/HCPCS: 81001; 87086